=== PATIENT | male | born 1945 | race Caucasian/White ===

== ENCOUNTER 2017-05-30 07:22 | Observation (INO) | payer MEDICARE, OTHER ==
[2017-05-30] MEDS: SODIUM CHLORIDE 0.9% 1L BAG IV* (08:23)
[2017-05-30] MEDS ORDERED: ACETAMINOPHEN 500 MG TAB (08:32)
[2017-05-30 08:39] LABS: ADD MAN DIFF? NO
[2017-05-30] MEDS: CEFEPIME 2GM/50 ML (PMX) 50 ML IVPB (08:39)
[2017-05-30] MEDS: ACETAMINOPHEN 500 MG TAB PO (08:39)
[2017-05-30 08:49] LABS: WHITE BLOOD COUNT 12.5 10^3/ul (4.8-10.8)
[2017-05-30 08:49] LABS: ABNORMAL IP MESSAGE 1; BASOPHILS % 0.2 % (0.0-2.0); EOSINOPHILS # 0.2 10^3/ul (0.0-0.5); EOSINOPHILS % 1.5 % (0.0-7.0); HEMATOCRIT 26.4 % (42.0-52.0); HEMOGLOBIN 8.5 g/dl (14.0-18.0); LYMPHOCYTES # 0.9 10^3/ul (0.8-2.9); LYMPHOCYTES % 6.8 % (15.0-51.0); MEAN CORPUSCULAR HEMOGLOBIN 29.4 pg (29.0-33.0); MEAN CORPUSCULAR HGB CONC 32.2 g/dl (32.0-37.0); MEAN CORPUSCULAR VOLUME 91.3 fl (82.0-101.0); MEAN PLATELET VOLUME 13.5 fl (7.4-10.4); MONOCYTE # 1.2 10^3/ul (0.3-0.9); MONOCYTES % 9.4 % (0.0-11.0); NEUTROPHIL # 10.2 10^3/ul (1.6-7.5); NEUTROPHILS % 81.6 % (39.0-77.0); PLATELET COUNT 100 10^3/UL (140-415); POSITIVE DIFF @See below; RED BLOOD COUNT 2.89 10^6/ul (4.70-6.10); RED CELL DISTRIBUTION WIDTH 14.7 % (11.5-14.5)
[2017-05-30 08:57] LABS: INR 1.19; PROTIME 15.3 Sec (11.9-14.9); PT RATIO 1.2
[2017-05-30 08:58] LABS: PARTIAL THROMBOPLASTIN TIME 33.7 Sec (25.0-35.0)
[2017-05-30] MEDS: VANCOMYCIN 1 GM (PMX) 250 ML IVPB ×2 (09:12→12:05)
[2017-05-30] MEDS: HYDROmorphONE 1 MG/ML SYG IV (09:32)
[2017-05-30] MEDS: ONDANSETRON 4 MG INJ IV (09:32)
[2017-05-30] MEDS: SOD CHLORIDE 0.9% 1,000 ML IV ×3 (09:47→15:13)
[2017-05-30 09:49] LABS: ALANINE AMINOTRANSFERASE 42 IU/L (13-69); ALBUMIN 3.6 g/dl (3.3-4.9); ALBUMIN/GLOBULIN RATIO 0.94; ALKALINE PHOSPHATASE 64 IU/L (42-121); ANION GAP 22 (8-16); ASPARTATE AMINO TRANSFERASE 20 IU/L (15-46); BILIRUBIN,INDIRECT 0.4 mg/dl (0-1.1); BILIRUBIN,TOTAL 0.4 mg/dl (0.2-1.3); BLOOD UREA NITROGEN 49 mg/dl (7-20); CALCIUM 8.3 mg/dl (8.4-10.2); CARBON DIOXIDE 24 mmol/L (21-31); CHLORIDE 102 mmol/L (97-110); CREATININE 10.07 mg/dl (0.61-1.24); GLUCOSE 84 mg/dl (70-220); POTASSIUM 5.1 mmol/L (3.5-5.1); SODIUM 143 mmol/L (135-144); TOTAL PROTEIN 7.4 g/dl (6.1-8.1)
[2017-05-30 10:00] LABS: TROPONIN-I 0.089 ng/ml (0.00-0.12)
[2017-05-30] MEDS ORDERED: ONDANSETRON 4 MG INJ IV ×2 (12:00→14:00)
[2017-05-30] MEDS ORDERED: ACETAMINOPHEN 325 MG TAB PO ×2 (12:00→14:00)
[2017-05-30 12:03] LABS: ADD UMIC YES; UR ASCORBIC ACID NEGATIVE (NEGATIVE); UR BILIRUBIN (Dip) NEGATIVE (NEGATIVE); UR BLOOD (Dip) NEGATIVE (NEGATIVE); UR CLARITY CLEAR (CLEAR); UR COLOR YELLOW (YELLOW); UR GLUCOSE (Dip) 1+ mg/dL (NEGATIVE); UR KETONES (Dip) NEGATIVE (NEGATIVE); UR LEUKOCYTE ESTERASE (Dip) NEGATIVE Leu/ul (NEGATIVE); UR NITRITE (Dip) NEGATIVE (NEGATIVE); UR RBC 0 /HPF (0-5); UR SPECIFIC GRAVITY (Dip) 1.012 (1.003-1.030); UR TOTAL PROTEIN (Dip) 3+ mg/dl (NEGATIVE); UR UROBILINOGEN (Dip) NEGATIVE (NEGATIVE); UR WBC 0 /HPF (0-5)
[2017-05-30] MEDS: CEFEPIME 1GM/50 ML (PMX) 50 ML IVPB (12:04)
[2017-05-30 12:05] LABS: LACTIC ACID 0.8 mmol/L (0.5-2.0)
[2017-05-30] MEDS ORDERED: GLUCOSE GEL 15 GRAM TUBE PO ×2 (14:00)
[2017-05-30] MEDS ORDERED: GLUCAGON 1 MG INJ IM (14:00)
[2017-05-30] MEDS ORDERED: DEXTROSE 50% 50 ML SYRINGE IV ×2 (14:00)
[2017-05-30] MEDS ORDERED: VANCOMYCIN IV PER PHARMACY XX (14:00)
[2017-05-30] MEDS: HYPOGLYCEMIA PROTOCOL when Glucose is <70 mg/dL or symptomatic <90 mg/dL. XX (14:00)
[2017-05-30] MEDS ORDERED: BISACODYL 10 MG SUPP PR (14:00)
[2017-05-30] MEDS ORDERED: HYDROCODONE/APAP (5/325) TAB PO (14:00)
[2017-05-30] MEDS ORDERED: MAGNESIUM HYDROXIDE 30ML CUP PO (14:00)
[2017-05-30] MEDS ORDERED: NACL 0.9% 3 ML SYG IV (14:00)
[2017-05-30] MEDS ORDERED: hydrALAzine 20 MG INJ IV (14:00)
[2017-05-30] MEDS: Discontinue current oral sulfonylureas (glyburide, glipizide, and/or glimepiride) prior to XX (14:00)
[2017-05-30 14:04] LABS: LACTIC ACID 0.8 mmol/L (0.5-2.0)
[2017-05-30 14:20] LABS: URIC ACID 5.8 mg/dl (3.1-7.9)
[2017-05-30] MEDS: morphine 2 MG INJ IV (14:30)
[2017-05-30] MEDS ORDERED: traMADol 50 MG TAB PO (14:30)
[2017-05-30 15:12] LABS: ERYTHROCYTE SEDIMENTATION RATE 35 mm/Hr (0-20)
[2017-05-30] MEDS: PREGABALIN 75 MG CAP PO (15:13)
[2017-05-30] MEDS: HYDROCODONE/APAP (5/325) TAB PO ×2 (15:14→20:12)
[2017-05-30] MEDS: INSULIN ASPART [NOVOLOG] 3 ML PEN SC ×3 (18:03→21:00)
[2017-05-30] MEDS: CALCIUM ACETATE 667 MG CAP PO (19:01)
[2017-05-30] MEDS: CEFTRIAXONE 1 GM/50 ML (PMX) 50 ML IVPB (19:59)
[2017-05-30] MEDS: INSULIN GLARGINE [LANtus] 3 ML PEN SC ×2 (20:00→21:00)
[2017-05-30] MEDS: TERAZOSIN 1 MG CAP PO (21:06)
[2017-05-30] MEDS: METOPROLOL 50 MG TAB PO (21:07)
[2017-05-30] MEDS: FAMOTIDINE 20 MG TAB PO (21:08)
[2017-05-30] MEDS: ATORVASTATIN 80 MG TAB PO (21:13)
[2017-05-30] MEDS: GLUCOSE GEL 15 GRAM TUBE BUCCAL (21:16)
[2017-05-30] MEDS: HEPARIN 5,000 UNIT/0.5 ML VIAL SC (21:21)
[2017-05-31] MEDS: ACCU-CHEK XX (02:00)
[2017-05-31 06:10] LABS: ADD MAN DIFF? NO
[2017-05-31 06:12] LABS: ABNORMAL IP MESSAGE 1; BASOPHILS % 0.2 % (0.0-2.0); EOSINOPHILS # 0.3 10^3/ul (0.0-0.5); EOSINOPHILS % 3.4 % (0.0-7.0); HEMATOCRIT 27.3 % (42.0-52.0); HEMOGLOBIN 8.7 g/dl (14.0-18.0); LYMPHOCYTES % 11.6 % (15.0-51.0); MEAN CORPUSCULAR HGB CONC 31.9 g/dl (32.0-37.0); MEAN PLATELET VOLUME 13.8 fl (7.4-10.4); MONOCYTE # 1.2 10^3/ul (0.3-0.9); MONOCYTES % 14.2 % (0.0-11.0); NEUTROPHIL # 5.7 10^3/ul (1.6-7.5); NEUTROPHILS % 70.2 % (39.0-77.0); PLATELET COUNT 104 10^3/UL (140-415); POSITIVE DIFF @See below; RED CELL DISTRIBUTION WIDTH 14.9 % (11.5-14.5)
[2017-05-31 06:12] LABS: WHITE BLOOD COUNT 8.2 10^3/ul (4.8-10.8)
[2017-05-31 07:06] LABS: ANION GAP 19 (8-16); BLOOD UREA NITROGEN 38 mg/dl (7-20); CALCIUM 8.6 mg/dl (8.4-10.2); CARBON DIOXIDE 28 mmol/L (21-31); CHLORIDE 101 mmol/L (97-110); CREATININE 8.77 mg/dl (0.61-1.24); GLUCOSE 88 mg/dl (70-220); MAGNESIUM 2.1 mg/dl (1.7-2.5); PHOSPHORUS 6.2 mg/dl (2.5-4.9); POTASSIUM 4.6 mmol/L (3.5-5.1); SODIUM 143 mmol/L (135-144)
[2017-05-31] MEDS: INSULIN ASPART [NOVOLOG] 3 ML PEN SC ×7 (08:00→21:00)
[2017-05-31] MEDS: INSULIN GLARGINE [LANtus] 3 ML PEN SC (08:19)
[2017-05-31] MEDS: HEPARIN 5,000 UNIT/0.5 ML VIAL SC ×2 (08:21→21:22)
[2017-05-31] MEDS: FOLIC ACID 1 MG TAB PO (08:25)
[2017-05-31] MEDS: PREGABALIN 75 MG CAP PO (08:25)
[2017-05-31] MEDS: CALCIUM ACETATE 667 MG CAP PO ×3 (08:25→17:29)
[2017-05-31] MEDS: LINAGLIPTIN 5 MG TABLET PO (08:26)
[2017-05-31] MEDS: ASPIRIN (EC) 81 MG TAB PO (08:26)
[2017-05-31] MEDS: CLOPIDOGREL 75 MG TAB PO (08:26)
[2017-05-31] MEDS: METOPROLOL 50 MG TAB PO ×2 (08:27→21:16)
[2017-05-31] MEDS: AMLODIPINE 10 MG TAB PO ×2 (08:27→17:31)
[2017-05-31] MEDS ORDERED: LOSARTAN 50 MG TAB PO (09:00)
[2017-05-31] MEDS: ISOSORBIDE MONONITRATE(SR)30 MG TAB PO (09:00)
[2017-05-31 10:22] LABS: HEMOGLOBIN A1C 5.6 % (0-5.9)
[2017-05-31] MEDS: CEFTRIAXONE 1 GM/50 ML (PMX) 50 ML IVPB (19:57)
[2017-05-31] MEDS: ATORVASTATIN 80 MG TAB PO (21:16)
[2017-05-31] MEDS: TERAZOSIN 1 MG CAP PO (21:16)
[2017-05-31] MEDS: FAMOTIDINE 20 MG TAB PO (21:16)
[2017-06-01] MEDS: ACCU-CHEK XX (02:00)
[2017-06-01] MEDS: DOCUSATE SODIUM 100 MG CAP PO (06:22)
[2017-06-01 06:30] LABS: ADD MAN DIFF? NO
[2017-06-01 06:40] LABS: WHITE BLOOD COUNT 6.7 10^3/ul (4.8-10.8)
[2017-06-01 06:40] LABS: BASOPHILS % 0.5 % (0.0-2.0); EOSINOPHILS # 0.3 10^3/ul (0.0-0.5); EOSINOPHILS % 4.4 % (0.0-7.0); HEMATOCRIT 27.8 % (42.0-52.0); LYMPHOCYTES # 0.8 10^3/ul (0.8-2.9); LYMPHOCYTES % 11.7 % (15.0-51.0); MEAN CORPUSCULAR HEMOGLOBIN 28.9 pg (29.0-33.0); MEAN CORPUSCULAR HGB CONC 32.4 g/dl (32.0-37.0); MEAN CORPUSCULAR VOLUME 89.4 fl (82.0-101.0); MEAN PLATELET VOLUME 12.7 fl (7.4-10.4); MONOCYTES % 15.3 % (0.0-11.0); NEUTROPHIL # 4.5 10^3/ul (1.6-7.5); NEUTROPHILS % 67.5 % (39.0-77.0); PLATELET COUNT 106 10^3/UL (140-415); POSITIVE DIFF @See below; RED BLOOD COUNT 3.11 10^6/ul (4.70-6.10); RED CELL DISTRIBUTION WIDTH 14.1 % (11.5-14.5)
[2017-06-01 07:06] LABS: VANCOMYCIN,RANDOM 8.5 ug/ml
[2017-06-01 07:21] LABS: ANION GAP 21 (8-16); BLOOD UREA NITROGEN 53 mg/dl (7-20); CALCIUM 8.9 mg/dl (8.4-10.2); CARBON DIOXIDE 24 mmol/L (21-31); CHLORIDE 101 mmol/L (97-110); CREATININE 10.88 mg/dl (0.61-1.24); GLUCOSE 94 mg/dl (70-220); POTASSIUM 4.6 mmol/L (3.5-5.1); SODIUM 141 mmol/L (135-144)
[2017-06-01] MEDS ORDERED: INSULIN GLARGINE [LANtus] 3 ML PEN SC (08:00)
[2017-06-01] MEDS: INSULIN ASPART [NOVOLOG] 3 ML PEN SC ×7 (08:00→21:00)
[2017-06-01] MEDS: HEPARIN 5,000 UNIT/0.5 ML VIAL SC (08:30)
[2017-06-01] MEDS: INSULIN GLARGINE [LANtus] 3 ML PEN SC (08:31)
[2017-06-01] MEDS: ASPIRIN (EC) 81 MG TAB PO (08:32)
[2017-06-01] MEDS: FOLIC ACID 1 MG TAB PO (08:32)
[2017-06-01] MEDS: CALCIUM ACETATE 667 MG CAP PO ×3 (08:32→16:48)
[2017-06-01] MEDS: PREGABALIN 75 MG CAP PO (08:32)
[2017-06-01] MEDS: CLOPIDOGREL 75 MG TAB PO (08:32)
[2017-06-01] MEDS: LINAGLIPTIN 5 MG TABLET PO (08:36)
[2017-06-01] MEDS: ISOSORBIDE MONONITRATE(SR)30 MG TAB PO ×2 (09:00→12:11)
[2017-06-01] MEDS: METOPROLOL 50 MG TAB PO ×3 (09:00→21:50)
[2017-06-01] MEDS: AMLODIPINE 10 MG TAB PO ×2 (09:00→12:10)
[2017-06-01 09:28] LABS: MAGNESIUM 2.1 mg/dl (1.7-2.5)
[2017-06-01 09:28] LABS: PHOSPHORUS 6.3 mg/dl (2.5-4.9)
[2017-06-01] MEDS: LEVOFLOXACIN 250 MG TAB PO (11:38)
[2017-06-01] MEDS: FINASTERIDE 5 MG TAB PO (14:40)
[2017-06-01] MEDS: VANCOMYCIN 1 GM in SODIUM CHLORIDE 0.45 % 250 ML IVPB (16:34)
[2017-06-01] MEDS: ATORVASTATIN 80 MG TAB PO (21:49)
[2017-06-01] MEDS: FAMOTIDINE 20 MG TAB PO (21:50)
[2017-06-01] MEDS: TERAZOSIN 1 MG CAP PO (21:50)
[2017-06-02] MEDS: ACCU-CHEK XX (02:00)
[2017-06-02] MEDS: LEVOFLOXACIN 250 MG TAB PO (06:10)
[2017-06-02 06:11] LABS: ADD MAN DIFF? NO
[2017-06-02 06:18] LABS: WHITE BLOOD COUNT 6.3 10^3/ul (4.8-10.8)
[2017-06-02 06:18] LABS: BASOPHILS % 0.5 % (0.0-2.0); EOSINOPHILS # 0.4 10^3/ul (0.0-0.5); EOSINOPHILS % 6.2 % (0.0-7.0); HEMATOCRIT 25.9 % (42.0-52.0); HEMOGLOBIN 8.6 g/dl (14.0-18.0); LYMPHOCYTES # 0.9 10^3/ul (0.8-2.9); LYMPHOCYTES % 14.2 % (15.0-51.0); MEAN CORPUSCULAR HEMOGLOBIN 29.3 pg (29.0-33.0); MEAN CORPUSCULAR HGB CONC 33.2 g/dl (32.0-37.0); MEAN CORPUSCULAR VOLUME 88.1 fl (82.0-101.0); MEAN PLATELET VOLUME 12.9 fl (7.4-10.4); MONOCYTES % 15.6 % (0.0-11.0); PLATELET COUNT 109 10^3/UL (140-415); POSITIVE DIFF @See below; RED BLOOD COUNT 2.94 10^6/ul (4.70-6.10); RED CELL DISTRIBUTION WIDTH 13.7 % (11.5-14.5)
[2017-06-02 06:57] LABS: MAGNESIUM 2.3 mg/dl (1.7-2.5)
[2017-06-02 06:57] LABS: PHOSPHORUS 6.5 mg/dl (2.5-4.9)
[2017-06-02] MEDS: INSULIN ASPART [NOVOLOG] 3 ML PEN SC ×4 (08:00→11:57)
[2017-06-02 08:01] LABS: ALANINE AMINOTRANSFERASE 34 IU/L (13-69); ALBUMIN 3.6 g/dl (3.3-4.9); ALBUMIN/GLOBULIN RATIO 1.16; ALKALINE PHOSPHATASE 61 IU/L (42-121); ANION GAP 21 (8-16); ASPARTATE AMINO TRANSFERASE 30 IU/L (15-46); BILIRUBIN,INDIRECT 0.1 mg/dl (0-1.1); BILIRUBIN,TOTAL 0.1 mg/dl (0.2-1.3); BLOOD UREA NITROGEN 67 mg/dl (7-20); CALCIUM 8.7 mg/dl (8.4-10.2); CARBON DIOXIDE 19 mmol/L (21-31); CHLORIDE 102 mmol/L (97-110); CREATININE 11.71 mg/dl (0.61-1.24); GLUCOSE 80 mg/dl (70-220); POTASSIUM 4.9 mmol/L (3.5-5.1); SODIUM 137 mmol/L (135-144); TOTAL PROTEIN 6.7 g/dl (6.1-8.1)
[2017-06-02] MEDS: CLOPIDOGREL 75 MG TAB PO (08:26)
[2017-06-02] MEDS: FOLIC ACID 1 MG TAB PO (08:26)
[2017-06-02] MEDS: PREGABALIN 75 MG CAP PO (08:26)
[2017-06-02] MEDS: FINASTERIDE 5 MG TAB PO (08:27)
[2017-06-02] MEDS: CALCIUM ACETATE 667 MG CAP PO ×2 (08:27→11:07)
[2017-06-02] MEDS: LINAGLIPTIN 5 MG TABLET PO (08:27)
[2017-06-02] MEDS: INSULIN GLARGINE [LANtus] 3 ML PEN SC (08:28)
[2017-06-02] MEDS: METOPROLOL 50 MG TAB PO (08:30)
[2017-06-02] MEDS: ISOSORBIDE MONONITRATE(SR)30 MG TAB PO (08:30)
[2017-06-02] MEDS: ASPIRIN (EC) 81 MG TAB PO (08:30)
[2017-06-02] MEDS: AMLODIPINE 10 MG TAB PO (08:30)
[2017-06-02] MEDS: EPOETIN 10000 UNITS/1 ML INJ (ESRD) SC (13:33)
[2017-06-02] MEDS: SOD FERRIC GLUC COMPLX 125 MG in SOD CHLORIDE 0.9% 100 ML IVPB (13:38)
== END 2017-06-02 16:18 | disposition home health service (06) ==
LOC: E/R 07:22 → PP2 11:41
DX: N40.1 Benign prostatic hyperplasia with lower urinary tract symptoms (principal); R33.8 Other retention of urine; I12.0 Hypertensive chronic kidney disease with stage 5 chronic kidney disease or end stage renal disease; N18.6 End stage renal disease; Z99.2 Dependence on renal dialysis; I25.10 Atherosclerotic heart disease of native coronary artery without angina pectoris; E11.42 Type 2 diabetes mellitus with diabetic polyneuropathy; I73.9 Peripheral vascular disease, unspecified; Z79.4 Long term (current) use of insulin; E78.5 Hyperlipidemia, unspecified
CPT/HCPCS: 71010; 80048; 80053; 80202; 81001; 82962; 83036; 83605; 83735; 84100; 84484; 84560; 85025; 85610; 85651; 85730; 87040; 87086; 87400; 90935; 93970; G0378

== ENCOUNTER 2017-10-25 13:49 | Observation (INO) | payer MEDICARE, OTHER ==
[2017-10-25] MEDS: NITROGLYCERIN 2% 1 GM OINT PKT TD (16:28)
[2017-10-25] MEDS: ASPIRIN 81 MG TAB PO (16:28)
[2017-10-25 16:45] LABS: ADD MAN DIFF? NO
[2017-10-25 17:01] LABS: BASOPHIL # 0.1 10^3/ul (0.0-0.1); BASOPHILS % 0.9 % (0.0-2.0); EOSINOPHILS # 0.2 10^3/ul (0.0-0.5); HEMOGLOBIN 12.2 g/dl (14.0-18.0); LYMPHOCYTES % 14.9 % (15.0-51.0); MEAN CORPUSCULAR HEMOGLOBIN 28.4 pg (29.0-33.0); MEAN CORPUSCULAR VOLUME 86.2 fl (82.0-101.0); MEAN PLATELET VOLUME 11.8 fl (7.4-10.4); MONOCYTE # 0.7 10^3/ul (0.3-0.9); MONOCYTES % 9.9 % (0.0-11.0); PLATELET COUNT 188 10^3/UL (140-415); RED BLOOD COUNT 4.29 10^6/ul (4.70-6.10); RED CELL DISTRIBUTION WIDTH 15.5 % (11.5-14.5)
[2017-10-25 17:05] LABS: INR 0.96; PROTIME 12.9 Sec (11.9-14.9)
[2017-10-25 17:06] LABS: PARTIAL THROMBOPLASTIN TIME 31.5 Sec (25.0-35.0)
[2017-10-25 17:18] LABS: ANION GAP 20 (8-16); BLOOD UREA NITROGEN 35 mg/dl (7-20); CALCIUM 8.5 mg/dl (8.4-10.2); CARBON DIOXIDE 29 mmol/L (21-31); CHLORIDE 98 mmol/L (97-110); CREATININE 5.93 mg/dl (0.61-1.24); GLUCOSE 111 mg/dl (70-220); MAGNESIUM 2.1 mg/dl (1.7-2.5); PHOSPHORUS 5.3 mg/dl (2.5-4.9); POTASSIUM 4.9 mmol/L (3.5-5.1); SODIUM 142 mmol/L (135-144)
[2017-10-25 17:30] LABS: TROPONIN-I 0.054 ng/ml (0.000-0.120)
[2017-10-25] MEDS ORDERED: morphine 2 MG INJ IV (18:00)
[2017-10-25] MEDS ORDERED: ZOLPIDEM 5 MG TAB PO (18:00)
[2017-10-25] MEDS ORDERED: ONDANSETRON 4 MG INJ IV (18:00)
[2017-10-25] MEDS ORDERED: NITROGLYCERIN (SL) 0.4 MG TAB SL (18:00)
[2017-10-25] MEDS ORDERED: MAGNESIUM HYDROXIDE 30ML CUP PO (18:00)
[2017-10-25] MEDS ORDERED: NACL 0.9% 3 ML SYG IV (18:00)
[2017-10-25] MEDS ORDERED: DOCUSATE SODIUM 100 MG CAP PO (18:00)
[2017-10-25] MEDS ORDERED: ACETAMINOPHEN 325 MG TAB PO (18:00)
[2017-10-25] MEDS: INSULIN ASPART [NOVOLOG] 3 ML PEN SC ×2 (19:06→21:00)
[2017-10-25] MEDS: TERAZOSIN 1 MG CAP PO (21:40)
[2017-10-25] MEDS: MECLIZINE 12.5 MG TAB PO (21:40)
[2017-10-25] MEDS: GABAPENTIN 400 MG CAP PO (21:41)
[2017-10-25] MEDS: ATORVASTATIN 80 MG TAB PO (21:41)
[2017-10-25] MEDS: ROPINIROLE 0.25 MG TAB PO (21:41)
[2017-10-25] MEDS: METOPROLOL 50 MG TAB PO (21:47)
[2017-10-25 22:27] LABS: CREATINE KINASE 170 IU/L (23-200)
[2017-10-25 22:40] LABS: CK INDEX 0.9; TROPONIN-I 0.062 ng/ml (0.000-0.120)
[2017-10-25] MEDS ORDERED: GLUCOSE GEL 15 GRAM TUBE BUCCAL (23:00)
[2017-10-25] MEDS ORDERED: GLUCOSE GEL 15 GRAM TUBE PO ×2 (23:00)
[2017-10-25] MEDS ORDERED: DEXTROSE 50% 50 ML SYRINGE IV ×2 (23:00)
[2017-10-25] MEDS ORDERED: GLUCAGON 1 MG INJ IM (23:00)
[2017-10-26] MEDS: hydrALAzine 20 MG INJ IV ×2 (01:10→15:56)
[2017-10-26] MEDS: ACCU-CHEK XX (02:00)
[2017-10-26 05:38] LABS: WHITE BLOOD COUNT 6.7 10^3/ul (4.8-10.8)
[2017-10-26 05:38] LABS: ADD MAN DIFF? NO; BASOPHIL # 0.1 10^3/ul (0.0-0.1); EOSINOPHILS # 0.2 10^3/ul (0.0-0.5); EOSINOPHILS % 3.1 % (0.0-7.0); HEMATOCRIT 34.8 % (42.0-52.0); HEMOGLOBIN 11.3 g/dl (14.0-18.0); LYMPHOCYTES # 1.1 10^3/ul (0.8-2.9); LYMPHOCYTES % 15.9 % (15.0-51.0); MEAN CORPUSCULAR HEMOGLOBIN 27.9 pg (29.0-33.0); MEAN CORPUSCULAR HGB CONC 32.5 g/dl (32.0-37.0); MEAN CORPUSCULAR VOLUME 85.9 fl (82.0-101.0); MONOCYTE # 0.7 10^3/ul (0.3-0.9); MONOCYTES % 10.1 % (0.0-11.0); NEUTROPHIL # 4.7 10^3/ul (1.6-7.5); NEUTROPHILS % 69.6 % (39.0-77.0); PLATELET COUNT 156 10^3/UL (140-415); RED BLOOD COUNT 4.05 10^6/ul (4.70-6.10); RED CELL DISTRIBUTION WIDTH 15.8 % (11.5-14.5)
[2017-10-26 06:08] LABS: CREATINE KINASE 148 IU/L (23-200)
[2017-10-26 06:17] LABS: ALANINE AMINOTRANSFERASE 27 IU/L (13-69); ALBUMIN 3.7 g/dl (3.3-4.9); ALBUMIN/GLOBULIN RATIO 1.12; ALKALINE PHOSPHATASE 61 IU/L (42-121); ANION GAP 16 (8-16); ASPARTATE AMINO TRANSFERASE 18 IU/L (15-46); BILIRUBIN,INDIRECT 0.2 mg/dl (0-1.1); BILIRUBIN,TOTAL 0.2 mg/dl (0.2-1.3); BLOOD UREA NITROGEN 47 mg/dl (7-20); CALCIUM 8.5 mg/dl (8.4-10.2); CARBON DIOXIDE 31 mmol/L (21-31); CHLORIDE 100 mmol/L (97-110); CREATININE 7.22 mg/dl (0.61-1.24); GLUCOSE 68 mg/dl (70-220); POTASSIUM 4.7 mmol/L (3.5-5.1); SODIUM 142 mmol/L (135-144)
[2017-10-26 06:18] LABS: CK INDEX 0.8; TROPONIN-I 0.064 ng/ml (0.000-0.120)
[2017-10-26 06:19] LABS: CK-MB 1.23 ng/ml (0.0-2.4)
[2017-10-26 06:22] LABS: CHOL/HDL RATIO 4.6 RATIO; CHOLESTEROL 162 mg/dl (100-200); HDL CHOLESTEROL 35 mg/dl (31-75); LDL CHOLESTEROL,CALCULATED 80 mg/dl; MAGNESIUM 2.2 mg/dl (1.7-2.5); TRIGLYCERIDES 237 mg/dl (0-149)
[2017-10-26 06:22] LABS: PHOSPHORUS 6.2 mg/dl (2.5-4.9)
[2017-10-26 07:09] LABS: HEMOGLOBIN A1C 5.8 % (0-5.9)
[2017-10-26] MEDS: INSULIN ASPART [NOVOLOG] 3 ML PEN SC ×2 (08:00→12:00)
[2017-10-26] MEDS: INSULIN GLARGINE [LANtus] 3 ML PEN SC (09:00)
[2017-10-26] MEDS: ISOSORBIDE MONONITRATE(SR)30 MG TAB PO (10:01)
[2017-10-26] MEDS: MECLIZINE 12.5 MG TAB PO (10:01)
[2017-10-26] MEDS: ASPIRIN (EC) 81 MG TAB PO (10:02)
[2017-10-26] MEDS: GABAPENTIN 400 MG CAP PO ×2 (10:02→13:09)
[2017-10-26] MEDS: METOPROLOL 50 MG TAB PO (10:02)
[2017-10-26] MEDS: CLOPIDOGREL 75 MG TAB PO (10:02)
[2017-10-26] MEDS: AMLODIPINE 10 MG TAB PO (10:03)
[2017-10-26] MEDS: HYDROCODONE/APAP (5/325) TAB PO (10:24)
[2017-10-26] MEDS: REGADENOSON 0.4 MG/5 ML SYG (14:09)
[2017-10-26] MEDS ORDERED: morphine LIQ (10 MG/5 ML) CUP PO (15:00)
== END 2017-10-26 18:00 | disposition home or self-care (01) ==
LOC: MS4 17:41 → E/R 13:49
DX: R07.9 Chest pain, unspecified (principal); I12.0 Hypertensive chronic kidney disease with stage 5 chronic kidney disease or end stage renal disease; E11.22 Type 2 diabetes mellitus with diabetic chronic kidney disease; N18.6 End stage renal disease; Z99.2 Dependence on renal dialysis; Z79.4 Long term (current) use of insulin; E78.5 Hyperlipidemia, unspecified; I25.10 Atherosclerotic heart disease of native coronary artery without angina pectoris; Z98.61 Coronary angioplasty status; D64.9 Anemia, unspecified
CPT/HCPCS: 36415; 71045; 78452; 80048; 80053; 80061; 82550; 82553; 82962; 83036; 83735; 84100; 84443; 84484; 85025; 85610; 85730; 87081; 93005; 93017; 93306; 99285-25; G0378

== ENCOUNTER 2017-11-11 16:46 | Observation (INO) | payer MEDICARE, OTHER ==
[2017-11-11 19:35] LABS: ADD MAN DIFF? NO
[2017-11-11 19:36] LABS: BASOPHIL # 0.1 10^3/ul (0.0-0.1); EOSINOPHILS # 0.3 10^3/ul (0.0-0.5); EOSINOPHILS % 3.9 % (0.0-7.0); HEMATOCRIT 36.6 % (42.0-52.0); HEMOGLOBIN 12.3 g/dl (14.0-18.0); LYMPHOCYTES # 1.8 10^3/ul (0.8-2.9); LYMPHOCYTES % 21.5 % (15.0-51.0); MEAN CORPUSCULAR HGB CONC 33.6 g/dl (32.0-37.0); MEAN CORPUSCULAR VOLUME 86.3 fl (82.0-101.0); MEAN PLATELET VOLUME 11.8 fl (7.4-10.4); MONOCYTE # 0.9 10^3/ul (0.3-0.9); MONOCYTES % 11.2 % (0.0-11.0); NEUTROPHIL # 5.1 10^3/ul (1.6-7.5); NEUTROPHILS % 61.8 % (39.0-77.0); PLATELET COUNT 163 10^3/UL (140-415); RED BLOOD COUNT 4.24 10^6/ul (4.70-6.10); RED CELL DISTRIBUTION WIDTH 15.8 % (11.5-14.5)
[2017-11-11 19:36] LABS: WHITE BLOOD COUNT 8.2 10^3/ul (4.8-10.8)
[2017-11-11 19:57] LABS: ANION GAP 24 (8-16); BLOOD UREA NITROGEN 48 mg/dl (7-20); CARBON DIOXIDE 26 mmol/L (21-31); CHLORIDE 99 mmol/L (97-110); CREATININE 8.54 mg/dl (0.61-1.24); GLUCOSE 100 mg/dl (70-220); POTASSIUM 4.9 mmol/L (3.5-5.1); SODIUM 144 mmol/L (135-144)
[2017-11-11 19:58] LABS: PROTIME 13.3 Sec (11.9-14.9)
[2017-11-11 19:59] LABS: PARTIAL THROMBOPLASTIN TIME 29.7 Sec (25.0-35.0)
[2017-11-11] MEDS: APIXABAN 5 MG TABLET PO (20:14)
[2017-11-11] MEDS ORDERED: ACETAMINOPHEN 325 MG TAB PO (20:30)
[2017-11-11] MEDS ORDERED: ONDANSETRON 4 MG INJ IV (20:30)
[2017-11-11] MEDS ORDERED: morphine 2 MG INJ IV (21:30)
[2017-11-11] MEDS ORDERED: DEXTROSE 50% 50 ML SYRINGE IV ×2 (22:00)
[2017-11-11] MEDS ORDERED: GLUCOSE GEL 15 GRAM TUBE PO ×2 (22:00)
[2017-11-11] MEDS ORDERED: GLUCOSE GEL 15 GRAM TUBE BUCCAL (22:00)
[2017-11-11] MEDS ORDERED: GLUCAGON 1 MG INJ IM (22:00)
[2017-11-11] MEDS: INSULIN ASPART [NOVOLOG] 3 ML PEN SC (22:03)
[2017-11-11] MEDS: hydrALAzine 20 MG INJ IV (22:04)
[2017-11-12] MEDS: ACETAMINOPHEN 325 MG TAB PO ×2 (01:16→10:48)
[2017-11-12] MEDS: ACCU-CHEK XX (01:28)
[2017-11-12] MEDS: INSULIN ASPART [NOVOLOG] 3 ML PEN SC ×4 (08:14→17:24)
[2017-11-12] MEDS: hydrALAzine 20 MG INJ IV (08:15)
[2017-11-12 16:41] LABS: D-DIMER 969.83 ng/ml (<460)
[2017-11-12 16:59] LABS: HEPATITIS B SURFACE ANTIGEN NEGATIVE (NEGATIVE)
[2017-11-12] MEDS ORDERED: HYDROCODONE/APAP (5/325) TAB PO (17:30)
== END 2017-11-12 20:20 | disposition home or self-care (01) ==
LOC: E/R 16:46 → MS2 20:11
DX: I82.412 Acute embolism and thrombosis of left femoral vein (principal); I12.0 Hypertensive chronic kidney disease with stage 5 chronic kidney disease or end stage renal disease; E10.22 Type 1 diabetes mellitus with diabetic chronic kidney disease; N18.6 End stage renal disease; Z99.2 Dependence on renal dialysis; I25.10 Atherosclerotic heart disease of native coronary artery without angina pectoris; Z95.5 Presence of coronary angioplasty implant and graft; E10.51 Type 1 diabetes mellitus with diabetic peripheral angiopathy without gangrene; E10.40 Type 1 diabetes mellitus with diabetic neuropathy, unspecified; D64.9 Anemia, unspecified; M89.9 Disorder of bone, unspecified; E78.5 Hyperlipidemia, unspecified; Z79.4 Long term (current) use of insulin; Z79.82 Long term (current) use of aspirin; Z79.02 Long term (current) use of antithrombotics/antiplatelets
CPT/HCPCS: 36415; 80048; 82962; 85025; 85378; 85610; 85730; 87081; 87340; 90935; 93971; 99217; 99285-25

== ENCOUNTER 2018-01-02 18:41 | Emergency (ER) | payer MEDICARE, OTHER ==
[2018-01-02 20:52] LABS: ADD MAN DIFF? NO
[2018-01-02 20:55] LABS: ABNORMAL IP MESSAGE 1; BASOPHIL # 0.1 10^3/ul (0.0-0.1); BASOPHILS % 0.9 % (0.0-2.0); EOSINOPHILS # 0.2 10^3/ul (0.0-0.5); HEMOGLOBIN 10.9 g/dl (14.0-18.0); LYMPHOCYTES % 9.1 % (15.0-51.0); MEAN CORPUSCULAR HEMOGLOBIN 27.9 pg (29.0-33.0); MEAN CORPUSCULAR HGB CONC 32.1 g/dl (32.0-37.0); MEAN PLATELET VOLUME 12.5 fl (7.4-10.4); MONOCYTES % 9.7 % (0.0-11.0); NEUTROPHIL # 8.1 10^3/ul (1.6-7.5); NEUTROPHILS % 77.8 % (39.0-77.0); PLATELET COUNT 153 10^3/UL (140-415); POSITIVE DIFF @See below; RED BLOOD COUNT 3.91 10^6/ul (4.70-6.10)
[2018-01-02 20:55] LABS: WHITE BLOOD COUNT 10.4 10^3/ul (4.8-10.8)
[2018-01-02 21:14] LABS: INR 1.08; PROTIME 14.1 Sec (11.9-14.9); PT RATIO 1.1
[2018-01-02 21:15] LABS: ALANINE AMINOTRANSFERASE 29 IU/L (13-69); ALBUMIN 4.3 g/dl (3.3-4.9); ALBUMIN/GLOBULIN RATIO 1.16; ALKALINE PHOSPHATASE 67 IU/L (42-121); ANION GAP 22 (8-16); ASPARTATE AMINO TRANSFERASE 30 IU/L (15-46); BILIRUBIN,INDIRECT 0.4 mg/dl (0-1.1); BILIRUBIN,TOTAL 0.4 mg/dl (0.2-1.3); BLOOD UREA NITROGEN 64 mg/dl (7-20); CALCIUM 8.1 mg/dl (8.4-10.2); CARBON DIOXIDE 22 mmol/L (21-31); CHLORIDE 97 mmol/L (97-110); CREATININE 11.62 mg/dl (0.61-1.24); GLUCOSE 191 mg/dl (70-220); SODIUM 136 mmol/L (135-144)
[2018-01-02 21:26] LABS: TROPONIN-I 0.058 ng/ml (0.000-0.120)
== END 2018-01-03 00:15 | disposition home or self-care (01) ==
LOC: E/R 18:41
DX: E11.22 Type 2 diabetes mellitus with diabetic chronic kidney disease (principal); N18.6 End stage renal disease; I12.0 Hypertensive chronic kidney disease with stage 5 chronic kidney disease or end stage renal disease; I25.10 Atherosclerotic heart disease of native coronary artery without angina pectoris; R41.82 Altered mental status, unspecified; Z79.01 Long term (current) use of anticoagulants; Z79.4 Long term (current) use of insulin; Z98.61 Coronary angioplasty status; Z79.82 Long term (current) use of aspirin
CPT/HCPCS: 36415; 70450; 71045; 80053; 84484; 85025; 85610; 93005; 99285-25

== ENCOUNTER 2018-01-03 13:43 | Inpatient (IN) | payer MEDICARE, OTHER ==
[2018-01-03 21:02] LABS: ADD MAN DIFF? NO
[2018-01-03 21:08] LABS: BASOPHIL # 0.1 10^3/ul (0.0-0.1); BASOPHILS % 0.9 % (0.0-2.0); EOSINOPHILS # 0.2 10^3/ul (0.0-0.5); EOSINOPHILS % 1.8 % (0.0-7.0); HEMATOCRIT 35.8 % (42.0-52.0); HEMOGLOBIN 11.7 g/dl (14.0-18.0); LYMPHOCYTES # 1.4 10^3/ul (0.8-2.9); LYMPHOCYTES % 16.2 % (15.0-51.0); MEAN CORPUSCULAR HEMOGLOBIN 28.5 pg (29.0-33.0); MEAN CORPUSCULAR HGB CONC 32.7 g/dl (32.0-37.0); MEAN CORPUSCULAR VOLUME 87.1 fl (82.0-101.0); MEAN PLATELET VOLUME 12.5 fl (7.4-10.4); MONOCYTE # 0.8 10^3/ul (0.3-0.9); MONOCYTES % 9.6 % (0.0-11.0); NEUTROPHILS % 71.1 % (39.0-77.0); PLATELET COUNT 193 10^3/UL (140-415); RED BLOOD COUNT 4.11 10^6/ul (4.70-6.10); RED CELL DISTRIBUTION WIDTH 17.3 % (11.5-14.5)
[2018-01-03 21:08] LABS: WHITE BLOOD COUNT 8.4 10^3/ul (4.8-10.8)
[2018-01-03 21:28] LABS: PROTIME 14.4 Sec (11.9-14.9); PT RATIO 1.1
[2018-01-03 21:33] LABS: ALANINE AMINOTRANSFERASE 30 IU/L (13-69); ALBUMIN 4.8 g/dl (3.3-4.9); ALKALINE PHOSPHATASE 82 IU/L (42-121); ANION GAP 22 (8-16); ASPARTATE AMINO TRANSFERASE 32 IU/L (15-46); BILIRUBIN,INDIRECT 0.3 mg/dl (0-1.1); BILIRUBIN,TOTAL 0.3 mg/dl (0.2-1.3); BLOOD UREA NITROGEN 42 mg/dl (7-20); CALCIUM 9.2 mg/dl (8.4-10.2); CARBON DIOXIDE 25 mmol/L (21-31); CHLORIDE 96 mmol/L (97-110); CREATININE 8.43 mg/dl (0.61-1.24); GLUCOSE 187 mg/dl (70-220); POTASSIUM 4.8 mmol/L (3.5-5.1); SODIUM 138 mmol/L (135-144); TOTAL PROTEIN 8.8 g/dl (6.1-8.1)
[2018-01-03 21:39] LABS: ACETAMINOPHEN < 10.0 ug/ml (10.0-30.0); ETHANOL < 10.0 mg/dl; SALICYLATE < 1.0 mg/dl (5.0-30.0)
[2018-01-03 21:43] LABS: TROPONIN-I 0.055 ng/ml (0.000-0.120)
[2018-01-03 21:45] LABS: LACTIC ACID 2.8 mmol/L (0.5-2.0)
[2018-01-03] MEDS: SOD CHLORIDE 0.9% 500 ML IV (22:48)
[2018-01-04 00:43] LABS: LACTIC ACID 2.7 mmol/L (0.5-2.0)
[2018-01-04] MEDS: CEFEPIME 2GM/50 ML (PMX) 50 ML IVPB (01:54)
[2018-01-04] MEDS: SODIUM CHLORIDE 0.9% 1L BAG IV* (01:54)
[2018-01-04] MEDS: VANCOMYCIN 1 GM (PMX) 250 ML IVPB (03:17)
[2018-01-04] MEDS ORDERED: ACETAMINOPHEN 325 MG TAB PO ×2 (06:30→13:30)
[2018-01-04] MEDS ORDERED: ONDANSETRON 4 MG INJ IV (06:30)
[2018-01-04 06:31] LABS: LACTIC ACID 2.2 mmol/L (0.5-2.0)
[2018-01-04 07:05] LABS: AMPHETAMINE/METHAMPHETAMINE NEGATIVE (NEGATIVE); BARBITURATES NEGATIVE (NEGATIVE); BENZODIAZEPINES NEGATIVE (NEGATIVE); CANNABINOIDS NEGATIVE (NEGATIVE); COCAINE NEGATIVE (NEGATIVE); OPIATES NEGATIVE (NEGATIVE)
[2018-01-04] MEDS ORDERED: BISACODYL 10 MG SUPP PR (13:30)
[2018-01-04] MEDS ORDERED: DOCUSATE SODIUM 100 MG CAP PO (13:30)
[2018-01-04] MEDS ORDERED: morphine 2 MG INJ IV (13:30)
[2018-01-04] MEDS ORDERED: VANCOMYCIN IV PER PHARMACY XX (13:30)
[2018-01-04] MEDS ORDERED: ACETAMINOPHEN 650 MG SUPP PR (13:30)
[2018-01-04] MEDS ORDERED: NACL 0.9% 3 ML SYG IV (13:30)
[2018-01-04] MEDS: CEFEPIME 1GM/50 ML (PMX) 50 ML IVPB ×2 (14:19→14:32)
[2018-01-04 14:39] LABS: Allen Test ACCEPTAB; Arterial Base Excess -3.9 mmol/L (-3.0-3); Arterial Blood Gas Oxygen Sat 94.1 mmHG (95.0-98.0); Arterial COHb 1.2 % (0.0-3.0); Arterial Fraction of Oxyhgb 92.7 % (93.0-99.0); Arterial HCO3 21.3 mmol/L (22.0-26.0); Arterial MetHb 0.3 % (0.0-1.5); Arterial pCO2 39.4 mmhg (35-45); MODE ROOM AIR; Site Right Radial
[2018-01-04] MEDS: VANCOMYCIN 750 MG in SOD CHLORIDE 0.9% 150 ML IVPB (14:56)
[2018-01-04 15:04] LABS: LACTIC ACID 2.1 mmol/L (0.5-2.0)
[2018-01-04] MEDS: CALCIUM ACETATE 667 MG CAP PO (18:05)
[2018-01-04] MEDS: hydrALAzine 20 MG INJ IV (18:10)
[2018-01-04] MEDS: INSULIN ASPART [NOVOLOG] 3 ML PEN SC ×3 (18:27→20:59)
[2018-01-04] MEDS: TERAZOSIN 1 MG CAP PO (20:55)
[2018-01-04] MEDS: METOPROLOL 50 MG TAB PO (20:56)
[2018-01-04] MEDS: ATORVASTATIN 80 MG TAB PO (20:56)
[2018-01-04] MEDS: ROPINIROLE 0.25 MG TAB PO (20:56)
[2018-01-04] MEDS: BACLOFEN 10 MG TAB PO (21:00)
[2018-01-04] MEDS: GABAPENTIN 400 MG CAP PO (21:00)
[2018-01-04] MEDS: ACCU-CHEK XX (21:01)
[2018-01-05 06:32] LABS: ADD MAN DIFF? NO
[2018-01-05 06:38] LABS: WHITE BLOOD COUNT 7.8 10^3/ul (4.8-10.8)
[2018-01-05 06:38] LABS: BASOPHIL # 0.1 10^3/ul (0.0-0.1); BASOPHILS % 0.9 % (0.0-2.0); EOSINOPHILS # 0.2 10^3/ul (0.0-0.5); EOSINOPHILS % 2.8 % (0.0-7.0); HEMATOCRIT 34.9 % (42.0-52.0); HEMOGLOBIN 11.1 g/dl (14.0-18.0); LYMPHOCYTES % 12.2 % (15.0-51.0); MEAN CORPUSCULAR HEMOGLOBIN 27.7 pg (29.0-33.0); MEAN CORPUSCULAR HGB CONC 31.8 g/dl (32.0-37.0); MEAN PLATELET VOLUME 12.3 fl (7.4-10.4); MONOCYTE # 0.9 10^3/ul (0.3-0.9); MONOCYTES % 11.7 % (0.0-11.0); NEUTROPHIL # 5.6 10^3/ul (1.6-7.5); NEUTROPHILS % 71.6 % (39.0-77.0); PLATELET COUNT 168 10^3/UL (140-415); RED BLOOD COUNT 4.01 10^6/ul (4.70-6.10); RED CELL DISTRIBUTION WIDTH 17.4 % (11.5-14.5)
[2018-01-05 07:11] LABS: ALANINE AMINOTRANSFERASE 30 IU/L (13-69); ALBUMIN 3.9 g/dl (3.3-4.9); ALKALINE PHOSPHATASE 62 IU/L (42-121); ANION GAP 20 (8-16); ASPARTATE AMINO TRANSFERASE 27 IU/L (15-46); BILIRUBIN,INDIRECT 0.4 mg/dl (0-1.1); BILIRUBIN,TOTAL 0.4 mg/dl (0.2-1.3); BLOOD UREA NITROGEN 61 mg/dl (7-20); CALCIUM 8.4 mg/dl (8.4-10.2); CARBON DIOXIDE 19 mmol/L (21-31); CHLORIDE 105 mmol/L (97-110); CHOL/HDL RATIO 6.2 RATIO; CHOLESTEROL 212 mg/dl (100-200); GLUCOSE 145 mg/dl (70-220); HDL CHOLESTEROL 34 mg/dl (31-75); LDL CHOLESTEROL,CALCULATED 96 mg/dl; MAGNESIUM 2.1 mg/dl (1.7-2.5); PHOSPHORUS 7.1 mg/dl (2.5-4.9); POTASSIUM 5.6 mmol/L (3.5-5.1); SODIUM 138 mmol/L (135-144); TOTAL PROTEIN 6.9 g/dl (6.1-8.1); TRIGLYCERIDES 408 mg/dl (0-149)
[2018-01-05 07:21] LABS: FREE THYROXINE INDEX (Calc) 2.27 ug/ml (0.65-3.89); T3 UPTAKE 37.9 % (23.5-40.5)
[2018-01-05] MEDS: INSULIN GLARGINE [LANTus] (100 UNITS/ML) SYG SC (08:00)
[2018-01-05 08:11] LABS: HEMOGLOBIN A1C 7.3 % (0-5.9)
[2018-01-05] MEDS: DOCUSATE SODIUM 100 MG CAP PO (08:33)
[2018-01-05] MEDS: GABAPENTIN 400 MG CAP PO ×3 (08:33→22:58)
[2018-01-05] MEDS: AMLODIPINE 10 MG TAB PO (08:34)
[2018-01-05] MEDS: CLOPIDOGREL 75 MG TAB PO (08:34)
[2018-01-05] MEDS: CALCIUM ACETATE 667 MG CAP PO ×3 (08:34→17:54)
[2018-01-05] MEDS: ISOSORBIDE MONONITRATE(SR)30 MG TAB PO (08:34)
[2018-01-05] MEDS: ASPIRIN (EC) 81 MG TAB PO (08:34)
[2018-01-05] MEDS: METOPROLOL 50 MG TAB PO ×2 (08:35→23:00)
[2018-01-05] MEDS: LOSARTAN 50 MG TAB PO (08:35)
[2018-01-05] MEDS: INSULIN ASPART [NOVOLOG] 3 ML PEN SC ×7 (08:45→23:01)
[2018-01-05] MEDS: HYDROCHLOROTHIAZIDE 12.5 MG CAP PO (08:46)
[2018-01-05] MEDS ORDERED: NON-FORMULARY/PATIENT OWN MED (Losartan-Hydrochlorothiazide (Losartan-HCTZ) 1 TAB) PO (09:00)
[2018-01-05 11:48] LABS: LACTIC ACID 2.1 mmol/L (0.5-2.0)
[2018-01-05 12:04] LABS: HEPATITIS B SURFACE ANTIGEN NEGATIVE (NEGATIVE)
[2018-01-05 12:20] LABS: HEPATITIS B SURFACE ANTIBODY POSITIVE (NEGATIVE)
[2018-01-05] MEDS: SEVELAMER CARBONATE 800 MG TABLET PO ×2 (12:43→17:55)
[2018-01-05] MEDS: CEFEPIME 1GM/50 ML (PMX) 50 ML IVPB (14:49)
[2018-01-05] MEDS ORDERED: morphine LIQ (10 MG/5 ML) CUP PO (15:00)
[2018-01-05] MEDS: HYDROCODONE/APAP (5/325) TAB PO (18:00)
[2018-01-05] MEDS: BACLOFEN 10 MG TAB PO (22:58)
[2018-01-05] MEDS: TERAZOSIN 1 MG CAP PO (22:59)
[2018-01-05] MEDS: ROPINIROLE 0.25 MG TAB PO (22:59)
[2018-01-05] MEDS: ATORVASTATIN 80 MG TAB PO (23:01)
[2018-01-06] MEDS: ACCU-CHEK XX (02:00)
[2018-01-06 06:02] LABS: ADD MAN DIFF? NO
[2018-01-06 06:09] LABS: BASOPHIL # 0.1 10^3/ul (0.0-0.1); BASOPHILS % 0.7 % (0.0-2.0); EOSINOPHILS # 0.2 10^3/ul (0.0-0.5); EOSINOPHILS % 3.3 % (0.0-7.0); HEMATOCRIT 32.7 % (42.0-52.0); HEMOGLOBIN 10.6 g/dl (14.0-18.0); LYMPHOCYTES % 14.9 % (15.0-51.0); MEAN CORPUSCULAR HGB CONC 32.4 g/dl (32.0-37.0); MEAN CORPUSCULAR VOLUME 86.5 fl (82.0-101.0); MEAN PLATELET VOLUME 12.8 fl (7.4-10.4); MONOCYTE # 0.9 10^3/ul (0.3-0.9); MONOCYTES % 12.6 % (0.0-11.0); NEUTROPHIL # 4.7 10^3/ul (1.6-7.5); NEUTROPHILS % 67.9 % (39.0-77.0); PLATELET COUNT 164 10^3/UL (140-415); RED BLOOD COUNT 3.78 10^6/ul (4.70-6.10); RED CELL DISTRIBUTION WIDTH 17.8 % (11.5-14.5)
[2018-01-06 06:09] LABS: WHITE BLOOD COUNT 6.9 10^3/ul (4.8-10.8)
[2018-01-06 06:52] LABS: ANION GAP 18 (8-16); BLOOD UREA NITROGEN 41 mg/dl (7-20); CALCIUM 8.5 mg/dl (8.4-10.2); CARBON DIOXIDE 23 mmol/L (21-31); CHLORIDE 101 mmol/L (97-110); CREATININE 7.95 mg/dl (0.61-1.24); GLUCOSE 181 mg/dl (70-220); PHOSPHORUS 5.8 mg/dl (2.5-4.9); POTASSIUM 4.3 mmol/L (3.5-5.1); SODIUM 138 mmol/L (135-144)
[2018-01-06] MEDS: INSULIN ASPART [NOVOLOG] 3 ML PEN SC ×7 (08:00→20:20)
[2018-01-06] MEDS: SEVELAMER CARBONATE 800 MG TABLET PO ×3 (08:47→17:45)
[2018-01-06] MEDS: CALCIUM ACETATE 667 MG CAP PO ×3 (08:47→17:45)
[2018-01-06] MEDS: GABAPENTIN 400 MG CAP PO ×3 (08:47→20:17)
[2018-01-06] MEDS: ASPIRIN (EC) 81 MG TAB PO (08:47)
[2018-01-06] MEDS: DOCUSATE SODIUM 100 MG CAP PO (08:48)
[2018-01-06] MEDS: HYDROCHLOROTHIAZIDE 12.5 MG CAP PO (08:48)
[2018-01-06] MEDS: AMLODIPINE 10 MG TAB PO (08:48)
[2018-01-06] MEDS: ISOSORBIDE MONONITRATE(SR)30 MG TAB PO (08:49)
[2018-01-06] MEDS: CLOPIDOGREL 75 MG TAB PO (08:49)
[2018-01-06] MEDS: LOSARTAN 50 MG TAB PO (08:49)
[2018-01-06] MEDS: METOPROLOL 50 MG TAB PO ×2 (08:50→20:19)
[2018-01-06] MEDS: INSULIN GLARGINE [LANTus] (100 UNITS/ML) SYG SC (08:53)
[2018-01-06] MEDS: BACLOFEN 10 MG TAB PO (20:17)
[2018-01-06] MEDS: TERAZOSIN 1 MG CAP PO (20:18)
[2018-01-06] MEDS: ROPINIROLE 0.25 MG TAB PO (20:18)
[2018-01-06] MEDS: ATORVASTATIN 80 MG TAB PO (23:01)
[2018-01-07] MEDS: ACCU-CHEK XX (02:00)
[2018-01-07] MEDS: INSULIN ASPART [NOVOLOG] 3 ML PEN SC ×2 (09:17→10:24)
[2018-01-07] MEDS: CALCIUM ACETATE 667 MG CAP PO ×3 (10:24→17:16)
[2018-01-07] MEDS: SEVELAMER CARBONATE 800 MG TABLET PO ×3 (10:24→17:16)
[2018-01-07] MEDS: LOSARTAN 50 MG TAB PO (10:27)
[2018-01-07] MEDS: DOCUSATE SODIUM 100 MG CAP PO (10:27)
[2018-01-07] MEDS: ASPIRIN (EC) 81 MG TAB PO (10:28)
[2018-01-07] MEDS: HYDROCHLOROTHIAZIDE 12.5 MG CAP PO (10:29)
[2018-01-07] MEDS: ISOSORBIDE MONONITRATE(SR)30 MG TAB PO (10:29)
[2018-01-07] MEDS: CLOPIDOGREL 75 MG TAB PO (10:30)
[2018-01-07] MEDS: METOPROLOL 50 MG TAB PO ×2 (10:30→21:00)
[2018-01-07] MEDS: GABAPENTIN 400 MG CAP PO ×3 (10:30→21:00)
[2018-01-07] MEDS: AMLODIPINE 10 MG TAB PO (10:30)
[2018-01-07 10:37] LABS: ADD MAN DIFF? NO
[2018-01-07 10:39] LABS: AADO2 Arterial 18.3 mmHg (7.0-24.0); Arterial Base Excess -3.1 mmol/L (-3.0-3); Arterial COHb 0.9 % (0.0-3.0); Arterial Fraction of Oxyhgb 93.9 % (93.0-99.0); Arterial HCO3 21.5 mmol/L (22.0-26.0); Arterial MetHb 0.3 % (0.0-1.5); Arterial Total Hemglobin 11.2 g/dl (12.0-18.0); Arterial pCO2 36.9 mmhg (35-45); MODE ROOM AIR; Site Right Radial
[2018-01-07 10:42] LABS: BASOPHIL # 0.1 10^3/ul (0.0-0.1); BASOPHILS % 0.6 % (0.0-2.0); EOSINOPHILS # 0.3 10^3/ul (0.0-0.5); EOSINOPHILS % 3.4 % (0.0-7.0); HEMATOCRIT 36.2 % (42.0-52.0); HEMOGLOBIN 11.7 g/dl (14.0-18.0); LYMPHOCYTES % 12.5 % (15.0-51.0); MEAN CORPUSCULAR HEMOGLOBIN 28.5 pg (29.0-33.0); MEAN CORPUSCULAR HGB CONC 32.3 g/dl (32.0-37.0); MEAN CORPUSCULAR VOLUME 88.1 fl (82.0-101.0); MEAN PLATELET VOLUME 11.9 fl (7.4-10.4); MONOCYTE # 0.8 10^3/ul (0.3-0.9); NEUTROPHILS % 72.9 % (39.0-77.0); PLATELET COUNT 159 10^3/UL (140-415); RED BLOOD COUNT 4.11 10^6/ul (4.70-6.10); RED CELL DISTRIBUTION WIDTH 17.5 % (11.5-14.5)
[2018-01-07 10:42] LABS: WHITE BLOOD COUNT 8.3 10^3/ul (4.8-10.8)
[2018-01-07 11:09] LABS: AMMONIA < 9 umol/l (9-30)
[2018-01-07 11:11] LABS: ALANINE AMINOTRANSFERASE 30 IU/L (13-69); ALBUMIN 4.3 g/dl (3.3-4.9); ALKALINE PHOSPHATASE 64 IU/L (42-121); ANION GAP 22 (8-16); ASPARTATE AMINO TRANSFERASE 28 IU/L (15-46); BILIRUBIN,INDIRECT 0.5 mg/dl (0-1.1); BILIRUBIN,TOTAL 0.5 mg/dl (0.2-1.3); BLOOD UREA NITROGEN 56 mg/dl (7-20); CARBON DIOXIDE 22 mmol/L (21-31); CHLORIDE 99 mmol/L (97-110); CREATININE 10.29 mg/dl (0.61-1.24); GLUCOSE 141 mg/dl (70-220); POTASSIUM 5.1 mmol/L (3.5-5.1); SODIUM 138 mmol/L (135-144); TOTAL PROTEIN 7.6 g/dl (6.1-8.1)
[2018-01-07] MEDS: INSULIN GLARGINE [LANTus] (100 UNITS/ML) SYG SC (11:17)
[2018-01-07] MEDS ORDERED: INSULIN ASPART [NOVOLOG] 3 ML PEN SC (12:00)
[2018-01-07] MEDS: DEXTROSE 5%-0.45% NACL 1,000 ML IV (12:23)
[2018-01-07 12:38] LABS: LACTIC ACID 1.6 mmol/L (0.5-2.0)
[2018-01-07 12:52] LABS: TROPONIN-I 0.038 ng/ml (0.000-0.120)
[2018-01-07] MEDS ORDERED: VANCOMYCIN IV PER PHARMACY XX (14:30)
[2018-01-07] MEDS: Insulin NOVOLOG SS MILD Algorithm (NPO/TPN/ENTERAL FEEDS) SC ×2 (15:54→17:34)
[2018-01-07] MEDS: CEFEPIME 1GM/50 ML (PMX) 50 ML IVPB (17:15)
[2018-01-07] MEDS: VANCOMYCIN 1 GM 250 ML IVPB (17:23)
[2018-01-07] MEDS: ATORVASTATIN 80 MG TAB PO (21:00)
[2018-01-07] MEDS: TERAZOSIN 1 MG CAP PO (21:00)
[2018-01-07] MEDS: ROPINIROLE 0.25 MG TAB PO (21:00)
[2018-01-07] MEDS: BACLOFEN 10 MG TAB PO (21:00)
[2018-01-08] MEDS: hydrALAzine 20 MG INJ IV ×4 (00:26→20:16)
[2018-01-08] MEDS: ACCU-CHEK XX (02:00)
[2018-01-08] MEDS: DEXTROSE 5%-0.45% NACL 1,000 ML IV ×2 (02:18→16:38)
[2018-01-08] MEDS: KETOROLAC 30 MG INJ IV (06:28)
[2018-01-08] MEDS: Insulin NOVOLOG SS MILD Algorithm (NPO/TPN/ENTERAL FEEDS) SC ×4 (06:29→18:31)
[2018-01-08] MEDS: CALCIUM ACETATE 667 MG CAP PO ×3 (07:55→17:55)
[2018-01-08] MEDS: SEVELAMER CARBONATE 800 MG TABLET PO ×3 (07:55→17:55)
[2018-01-08] MEDS: INSULIN GLARGINE [LANTus] (100 UNITS/ML) SYG SC (08:23)
[2018-01-08] MEDS: HYDROCHLOROTHIAZIDE 12.5 MG CAP PO (08:41)
[2018-01-08] MEDS: DOCUSATE SODIUM 100 MG CAP PO (08:41)
[2018-01-08] MEDS: LOSARTAN 50 MG TAB PO (08:41)
[2018-01-08] MEDS: ASPIRIN (EC) 81 MG TAB PO (08:41)
[2018-01-08] MEDS: METOPROLOL 50 MG TAB PO ×2 (08:42→20:39)
[2018-01-08] MEDS: ISOSORBIDE MONONITRATE(SR)30 MG TAB PO (08:42)
[2018-01-08] MEDS: GABAPENTIN 400 MG CAP PO ×3 (08:43→20:39)
[2018-01-08] MEDS: CLOPIDOGREL 75 MG TAB PO (08:43)
[2018-01-08] MEDS: AMLODIPINE 10 MG TAB PO (08:43)
[2018-01-08] MEDS: morphine 2 MG INJ IV ×2 (11:27→20:26)
[2018-01-08] MEDS ORDERED: morphine 2 MG INJ IV (11:30)
[2018-01-08 12:41] LABS: ADD MAN DIFF? NO
[2018-01-08 12:43] LABS: WHITE BLOOD COUNT 9.9 10^3/ul (4.8-10.8)
[2018-01-08 12:43] LABS: BASOPHIL # 0.1 10^3/ul (0.0-0.1); BASOPHILS % 0.6 % (0.0-2.0); EOSINOPHILS # 0.2 10^3/ul (0.0-0.5); EOSINOPHILS % 1.5 % (0.0-7.0); HEMATOCRIT 36.6 % (42.0-52.0); LYMPHOCYTES % 10.2 % (15.0-51.0); MEAN CORPUSCULAR HEMOGLOBIN 27.8 pg (29.0-33.0); MEAN CORPUSCULAR HGB CONC 32.8 g/dl (32.0-37.0); MEAN CORPUSCULAR VOLUME 84.7 fl (82.0-101.0); MEAN PLATELET VOLUME 11.4 fl (7.4-10.4); MONOCYTE # 1.2 10^3/ul (0.3-0.9); MONOCYTES % 11.7 % (0.0-11.0); NEUTROPHIL # 7.4 10^3/ul (1.6-7.5); NEUTROPHILS % 75.5 % (39.0-77.0); PLATELET COUNT 161 10^3/UL (140-415); RED BLOOD COUNT 4.32 10^6/ul (4.70-6.10); RED CELL DISTRIBUTION WIDTH 17.7 % (11.5-14.5)
[2018-01-08 12:53] LABS: AADO2 Arterial 36.6 mmHg (7.0-24.0); Allen Test ACCEPTAB; Arterial Base Excess 2.5 mmol/L (-3.0-3); Arterial Blood Gas Oxygen Sat 94.6 mmHG (95.0-98.0); Arterial COHb 1.1 % (0.0-3.0); Arterial Fraction of Oxyhgb 93.3 % (93.0-99.0); Arterial HCO3 24.6 mmol/L (22.0-26.0); Arterial MetHb 0.3 % (0.0-1.5); Arterial Total Hemglobin 12.8 g/dl (12.0-18.0); Arterial pCO2 30.6 mmhg (35-45); MODE ROOM AIR; Site Right Radial
[2018-01-08 13:08] LABS: AMMONIA < 9 umol/l (9-30)
[2018-01-08 13:13] LABS: TROPONIN-I 0.063 ng/ml (0.000-0.120)
[2018-01-08 13:15] LABS: ALANINE AMINOTRANSFERASE 25 IU/L (13-69); ALBUMIN 4.3 g/dl (3.3-4.9); ALBUMIN/GLOBULIN RATIO 1.22; ALKALINE PHOSPHATASE 63 IU/L (42-121); ANION GAP 18 (8-16); ASPARTATE AMINO TRANSFERASE 29 IU/L (15-46); BILIRUBIN,INDIRECT 0.6 mg/dl (0-1.1); BILIRUBIN,TOTAL 0.6 mg/dl (0.2-1.3); BLOOD UREA NITROGEN 38 mg/dl (7-20); CALCIUM 8.9 mg/dl (8.4-10.2); CARBON DIOXIDE 23 mmol/L (21-31); CHLORIDE 100 mmol/L (97-110); CREATININE 8.01 mg/dl (0.61-1.24); GLUCOSE 153 mg/dl (70-220); POTASSIUM 4.4 mmol/L (3.5-5.1); SODIUM 137 mmol/L (135-144); TOTAL PROTEIN 7.8 g/dl (6.1-8.1)
[2018-01-08] MEDS: LABETALOL HCL 20MG INJ IV (13:19)
[2018-01-08] MEDS: CEFEPIME 1GM/50 ML (PMX) 50 ML IVPB (14:45)
[2018-01-08] MEDS: HYDROmorphONE 1 MG/ML SYG IV (15:27)
[2018-01-08] MEDS ORDERED: HYDROmorphONE 1 MG/ML SYG IV (15:30)
[2018-01-08] MEDS: LORAZEPAM 2 MG INJ IV (16:38)
[2018-01-08] MEDS: ONDANSETRON 4 MG INJ IV (20:15)
[2018-01-08] MEDS: TERAZOSIN 1 MG CAP PO (20:38)
[2018-01-08] MEDS: BACLOFEN 10 MG TAB PO (20:38)
[2018-01-08] MEDS: ATORVASTATIN 80 MG TAB PO (20:39)
[2018-01-08] MEDS: ROPINIROLE 0.25 MG TAB PO (20:39)
[2018-01-09] MEDS: Insulin NOVOLOG SS MILD Algorithm (NPO/TPN/ENTERAL FEEDS) SC ×4 (00:33→17:49)
[2018-01-09] MEDS: ACCU-CHEK XX (01:21)
[2018-01-09] MEDS: DEXTROSE 5%-0.45% NACL 1,000 ML IV (06:54)
[2018-01-09 07:24] LABS: ADD MAN DIFF? NO
[2018-01-09 07:27] LABS: BASOPHIL # 0.1 10^3/ul (0.0-0.1); BASOPHILS % 0.5 % (0.0-2.0); EOSINOPHILS # 0.3 10^3/ul (0.0-0.5); EOSINOPHILS % 3.2 % (0.0-7.0); HEMATOCRIT 34.4 % (42.0-52.0); LYMPHOCYTES # 0.9 10^3/ul (0.8-2.9); LYMPHOCYTES % 9.3 % (15.0-51.0); MEAN CORPUSCULAR HEMOGLOBIN 28.3 pg (29.0-33.0); MEAN CORPUSCULAR VOLUME 88.4 fl (82.0-101.0); MONOCYTE # 1.2 10^3/ul (0.3-0.9); MONOCYTES % 12.8 % (0.0-11.0); NEUTROPHILS % 73.8 % (39.0-77.0); PLATELET COUNT 149 10^3/UL (140-415); RED BLOOD COUNT 3.89 10^6/ul (4.70-6.10); RED CELL DISTRIBUTION WIDTH 18.1 % (11.5-14.5)
[2018-01-09 07:27] LABS: WHITE BLOOD COUNT 9.5 10^3/ul (4.8-10.8)
[2018-01-09] MEDS: SEVELAMER CARBONATE 800 MG TABLET PO ×3 (07:55→17:50)
[2018-01-09] MEDS: CALCIUM ACETATE 667 MG CAP PO ×3 (07:55→17:50)
[2018-01-09 07:57] LABS: ALANINE AMINOTRANSFERASE 26 IU/L (13-69); ALBUMIN 4.1 g/dl (3.3-4.9); ALBUMIN/GLOBULIN RATIO 1.13; ALKALINE PHOSPHATASE 57 IU/L (42-121); ANION GAP 20 (8-16); ASPARTATE AMINO TRANSFERASE 27 IU/L (15-46); BILIRUBIN,INDIRECT 0.7 mg/dl (0-1.1); BILIRUBIN,TOTAL 0.7 mg/dl (0.2-1.3); BLOOD UREA NITROGEN 49 mg/dl (7-20); CALCIUM 8.5 mg/dl (8.4-10.2); CARBON DIOXIDE 25 mmol/L (21-31); CHLORIDE 98 mmol/L (97-110); GLUCOSE 160 mg/dl (70-220); POTASSIUM 4.9 mmol/L (3.5-5.1); SODIUM 138 mmol/L (135-144); TOTAL PROTEIN 7.7 g/dl (6.1-8.1)
[2018-01-09] MEDS: INSULIN GLARGINE [LANTus] (100 UNITS/ML) SYG SC (08:11)
[2018-01-09] MEDS: METOPROLOL 50 MG TAB PO ×2 (08:49→20:36)
[2018-01-09] MEDS: HYDROCHLOROTHIAZIDE 12.5 MG CAP PO (08:49)
[2018-01-09] MEDS: LOSARTAN 50 MG TAB PO (08:49)
[2018-01-09] MEDS: DOCUSATE SODIUM 100 MG CAP PO (08:49)
[2018-01-09] MEDS: ASPIRIN (EC) 81 MG TAB PO (08:49)
[2018-01-09] MEDS: ISOSORBIDE MONONITRATE(SR)30 MG TAB PO (08:49)
[2018-01-09] MEDS: AMLODIPINE 10 MG TAB PO (08:50)
[2018-01-09] MEDS: CLOPIDOGREL 75 MG TAB PO (08:50)
[2018-01-09 08:51] LABS: MAGNESIUM 2.2 mg/dl (1.7-2.5)
[2018-01-09 08:51] LABS: PHOSPHORUS 9.1 mg/dl (2.5-4.9)
[2018-01-09] MEDS: CEFEPIME 1GM/50 ML (PMX) 50 ML IVPB (14:38)
[2018-01-09] MEDS: HYDROCODONE/APAP (5/325) TAB PO (19:47)
[2018-01-09] MEDS: ATORVASTATIN 80 MG TAB PO (20:35)
[2018-01-09] MEDS: TERAZOSIN 1 MG CAP PO (20:36)
[2018-01-09] MEDS: BACLOFEN 10 MG TAB PO (20:36)
[2018-01-09] MEDS: GENTAMICIN 150 MG in DEXTROSE 5% 100 ML IVPB (20:37)
[2018-01-09] MEDS: ROPINIROLE 0.25 MG TAB PO (20:40)
[2018-01-09] MEDS: INSULIN ASPART [NOVOLOG] 3 ML PEN SC (20:40)
[2018-01-10] MEDS: ACCU-CHEK XX (01:13)
[2018-01-10] MEDS: morphine 2 MG INJ IV (01:22)
[2018-01-10] MEDS: MAGNESIUM HYDROXIDE 30ML CUP PO (01:25)
[2018-01-10 03:12] LABS: ADD UMIC YES; UR ASCORBIC ACID NEGATIVE (NEGATIVE); UR BILIRUBIN (Dip) NEGATIVE (NEGATIVE); UR BLOOD (Dip) NEGATIVE (NEGATIVE); UR CLARITY CLEAR (CLEAR); UR COLOR YELLOW (YELLOW); UR GLUCOSE (Dip) 3+ mg/dL (NEGATIVE); UR KETONES (Dip) NEGATIVE (NEGATIVE); UR LEUKOCYTE ESTERASE (Dip) NEGATIVE Leu/ul (NEGATIVE); UR MUCUS FEW /HPF (NONE SEEN); UR NITRITE (Dip) NEGATIVE (NEGATIVE); UR RBC 0 /HPF (0-5); UR SPECIFIC GRAVITY (Dip) 1.006 (1.003-1.030); UR TOTAL PROTEIN (Dip) 3+ mg/dl (NEGATIVE); UR UROBILINOGEN (Dip) NEGATIVE (NEGATIVE); UR WBC 0 /HPF (0-5)
[2018-01-10 06:00] LABS: ADD MAN DIFF? NO
[2018-01-10 06:27] LABS: BASOPHIL # 0.1 10^3/ul (0.0-0.1); BASOPHILS % 0.7 % (0.0-2.0); EOSINOPHILS # 0.4 10^3/ul (0.0-0.5); EOSINOPHILS % 4.3 % (0.0-7.0); HEMATOCRIT 35.7 % (42.0-52.0); HEMOGLOBIN 11.4 g/dl (14.0-18.0); LYMPHOCYTES # 1.3 10^3/ul (0.8-2.9); MEAN CORPUSCULAR HEMOGLOBIN 28.1 pg (29.0-33.0); MEAN CORPUSCULAR HGB CONC 31.9 g/dl (32.0-37.0); MEAN CORPUSCULAR VOLUME 87.9 fl (82.0-101.0); MEAN PLATELET VOLUME 11.9 fl (7.4-10.4); MONOCYTE # 1.4 10^3/ul (0.3-0.9); MONOCYTES % 13.5 % (0.0-11.0); NEUTROPHILS % 67.9 % (39.0-77.0); PLATELET COUNT 145 10^3/UL (140-415); RED BLOOD COUNT 4.06 10^6/ul (4.70-6.10); RED CELL DISTRIBUTION WIDTH 17.6 % (11.5-14.5)
[2018-01-10 06:27] LABS: WHITE BLOOD COUNT 10.3 10^3/ul (4.8-10.8)
[2018-01-10 06:38] LABS: ANION GAP 17 (8-16); BLOOD UREA NITROGEN 38 mg/dl (7-20); CALCIUM 8.7 mg/dl (8.4-10.2); CARBON DIOXIDE 28 mmol/L (21-31); CHLORIDE 97 mmol/L (97-110); CREATININE 7.92 mg/dl (0.61-1.24); GLUCOSE 153 mg/dl (70-220); POTASSIUM 5.2 mmol/L (3.5-5.1); SODIUM 137 mmol/L (135-144)
[2018-01-10 06:42] LABS: VANCOMYCIN,RANDOM 12.7 ug/ml
[2018-01-10] MEDS: INSULIN ASPART [NOVOLOG] 3 ML PEN SC ×4 (08:28→21:21)
[2018-01-10] MEDS: INSULIN GLARGINE [LANTus] (100 UNITS/ML) SYG SC (08:28)
[2018-01-10] MEDS: CLOPIDOGREL 75 MG TAB PO (10:11)
[2018-01-10] MEDS: VANCOMYCIN 1 GM 250 ML IVPB (10:11)
[2018-01-10] MEDS: ASPIRIN (EC) 81 MG TAB PO (10:11)
[2018-01-10] MEDS: DOCUSATE SODIUM 100 MG CAP PO (10:11)
[2018-01-10] MEDS: HYDROCHLOROTHIAZIDE 12.5 MG CAP PO (10:55)
[2018-01-10] MEDS: SEVELAMER CARBONATE 800 MG TABLET PO ×3 (10:55→17:55)
[2018-01-10] MEDS: LOSARTAN 50 MG TAB PO (10:55)
[2018-01-10] MEDS: CALCIUM ACETATE 667 MG CAP PO ×3 (10:55→17:55)
[2018-01-10] MEDS: AMLODIPINE 10 MG TAB PO (10:56)
[2018-01-10] MEDS: ISOSORBIDE MONONITRATE(SR)30 MG TAB PO (10:56)
[2018-01-10] MEDS: METOPROLOL 50 MG TAB PO ×2 (10:56→21:15)
[2018-01-10] MEDS: POLYETHYLENE GLYCOL 17 GM PACKET PO (15:30)
[2018-01-10] MEDS ORDERED: LORAZEPAM 2 MG INJ IV (16:00)
[2018-01-10] MEDS: ATORVASTATIN 80 MG TAB PO (21:26)
[2018-01-10] MEDS: TERAZOSIN 1 MG CAP PO (21:26)
[2018-01-10 21:28] LABS: POTASSIUM 4.7 mmol/L (3.5-5.1)
[2018-01-11] MEDS: ACCU-CHEK XX (02:00)
[2018-01-11] MEDS: GENTAMICIN IN NACL, ISO-OSM 50 ML IVPB (05:40)
[2018-01-11] MEDS: INSULIN ASPART [NOVOLOG] 3 ML PEN SC ×3 (07:55→17:55)
[2018-01-11] MEDS: CALCIUM ACETATE 667 MG CAP PO ×3 (08:16→17:55)
[2018-01-11] MEDS: SEVELAMER CARBONATE 800 MG TABLET PO ×3 (08:16→17:55)
[2018-01-11] MEDS: INSULIN GLARGINE [LANTus] (100 UNITS/ML) SYG SC (08:27)
[2018-01-11] MEDS: DOCUSATE SODIUM 100 MG CAP PO (09:20)
[2018-01-11] MEDS: ISOSORBIDE MONONITRATE(SR)30 MG TAB PO (09:21)
[2018-01-11] MEDS: HYDROCHLOROTHIAZIDE 12.5 MG CAP PO (09:21)
[2018-01-11] MEDS: LOSARTAN 50 MG TAB PO (09:21)
[2018-01-11] MEDS: ASPIRIN (EC) 81 MG TAB PO (09:21)
[2018-01-11] MEDS: METOPROLOL 50 MG TAB PO (09:21)
[2018-01-11] MEDS: CLOPIDOGREL 75 MG TAB PO (09:21)
[2018-01-11] MEDS: POLYETHYLENE GLYCOL 17 GM PACKET PO (09:22)
[2018-01-11] MEDS: AMLODIPINE 10 MG TAB PO (09:22)
[2018-01-11 10:06] LABS: ADD MAN DIFF? NO
[2018-01-11 10:20] LABS: WHITE BLOOD COUNT 8.2 10^3/ul (4.8-10.8)
[2018-01-11 10:20] LABS: BASOPHIL # 0.1 10^3/ul (0.0-0.1); BASOPHILS % 0.9 % (0.0-2.0); EOSINOPHILS # 0.5 10^3/ul (0.0-0.5); EOSINOPHILS % 6.2 % (0.0-7.0); HEMATOCRIT 38.1 % (42.0-52.0); HEMOGLOBIN 11.8 g/dl (14.0-18.0); LYMPHOCYTES % 12.5 % (15.0-51.0); MEAN CORPUSCULAR HEMOGLOBIN 28.1 pg (29.0-33.0); MEAN CORPUSCULAR VOLUME 90.7 fl (82.0-101.0); MEAN PLATELET VOLUME 12.1 fl (7.4-10.4); MONOCYTES % 12.1 % (0.0-11.0); NEUTROPHIL # 5.6 10^3/ul (1.6-7.5); NEUTROPHILS % 67.9 % (39.0-77.0); PLATELET COUNT 139 10^3/UL (140-415); RED CELL DISTRIBUTION WIDTH 17.1 % (11.5-14.5)
[2018-01-11 10:47] LABS: ANION GAP 19 (8-16); BLOOD UREA NITROGEN 42 mg/dl (7-20); CALCIUM 8.7 mg/dl (8.4-10.2); CARBON DIOXIDE 27 mmol/L (21-31); CHLORIDE 93 mmol/L (97-110); CREATININE 6.73 mg/dl (0.61-1.24); GLUCOSE 196 mg/dl (70-220); MAGNESIUM 2.4 mg/dl (1.7-2.5); POTASSIUM 5.2 mmol/L (3.5-5.1); SODIUM 134 mmol/L (135-144)
[2018-01-11 10:48] LABS: IRON 40 ug/dl (35-150)
[2018-01-11 10:58] LABS: % IRON SATURATION 22 % SAT (22-52); TOTAL IRON BINDING CAPACITY 183 ug/dl (241-421)
[2018-01-11] MEDS: HYDROCODONE/APAP (5/325) TAB PO (12:28)
[2018-01-16 14:06] LABS: PROCALCITONIN 0.38 ng/mL (<0.10)
== END 2018-01-11 18:34 | DRG 871 ==
LOC: E/R 13:43 → TEL 01-07 12:55 → 2NE 01-04 06:06
PROC: 5A1D70Z Performance of Urinary Filtration, Intermittent, Less than 6 Hours Per Day (ICD-10-PCS; principal; 2018-01-05)
DX: A41.9 Sepsis, unspecified organism (principal); N18.6 End stage renal disease; G93.41 Metabolic encephalopathy; J18.9 Pneumonia, unspecified organism; E87.2 Acidosis; I12.0 Hypertensive chronic kidney disease with stage 5 chronic kidney disease or end stage renal disease; K56.7 Ileus, unspecified; F33.9 Major depressive disorder, recurrent, unspecified; E11.22 Type 2 diabetes mellitus with diabetic chronic kidney disease; D63.1 Anemia in chronic kidney disease; E78.5 Hyperlipidemia, unspecified; E66.9 Obesity, unspecified; I25.10 Atherosclerotic heart disease of native coronary artery without angina pectoris; E11.42 Type 2 diabetes mellitus with diabetic polyneuropathy; R53.81 Other malaise; E83.9 Disorder of mineral metabolism, unspecified; E87.5 Hyperkalemia; Z68.28 Body mass index [BMI] 28.0-28.9, adult; Z99.2 Dependence on renal dialysis; Z79.4 Long term (current) use of insulin
CPT/HCPCS: 36415; 36600; 70450; 70551; 71045; 74176; 80048; 80053; 80061; 80202; 80307; 81001; 82140; 82803; 82962; 83036; 83540; 83605; 83735; 84100; 84132; 84145; 84436; 84443; 84479; 84484; 85025; 85610; 86706; 87040; 87340; 90935; 92610; 93005; 93931; 93971; 96361; 96365; 96366; 96368; 97110; 97161; 97164; 97530; 99217; 99285-25; G0378

== ENCOUNTER 2018-03-01 17:52 | Emergency (ER) | payer MEDICARE, OTHER ==
[2018-03-01 18:40] LABS: ADD MAN DIFF? NO
[2018-03-01 18:43] LABS: BASOPHILS % 0.4 % (0.0-2.0); EOSINOPHILS # 0.1 10^3/ul (0.0-0.5); EOSINOPHILS % 1.8 % (0.0-7.0); HEMATOCRIT 31.6 % (42.0-52.0); HEMOGLOBIN 10.2 g/dl (14.0-18.0); LYMPHOCYTES % 12.9 % (15.0-51.0); MEAN CORPUSCULAR HEMOGLOBIN 28.6 pg (29.0-33.0); MEAN CORPUSCULAR HGB CONC 32.3 g/dl (32.0-37.0); MEAN CORPUSCULAR VOLUME 88.5 fl (82.0-101.0); MEAN PLATELET VOLUME 10.9 fl (7.4-10.4); MONOCYTE # 0.8 10^3/ul (0.3-0.9); MONOCYTES % 10.6 % (0.0-11.0); NEUTROPHIL # 5.5 10^3/ul (1.6-7.5); PLATELET COUNT 180 10^3/UL (140-415); RED BLOOD COUNT 3.57 10^6/ul (4.70-6.10)
[2018-03-01 18:43] LABS: WHITE BLOOD COUNT 7.4 10^3/ul (4.8-10.8)
[2018-03-01 18:57] LABS: INR 1.13; PROTIME 14.7 Sec (11.9-14.9); PT RATIO 1.1
[2018-03-01 18:58] LABS: PARTIAL THROMBOPLASTIN TIME 29.2 Sec (23.0-35.0)
[2018-03-01 19:03] LABS: ALANINE AMINOTRANSFERASE 25 IU/L (13-69); ALBUMIN 3.7 g/dl (3.3-4.9); ALBUMIN/GLOBULIN RATIO 1.05; ALKALINE PHOSPHATASE 60 IU/L (42-121); ANION GAP 18 (8-16); ASPARTATE AMINO TRANSFERASE 23 IU/L (15-46); BILIRUBIN,INDIRECT 0.2 mg/dl (0-1.1); BILIRUBIN,TOTAL 0.2 mg/dl (0.2-1.3); BLOOD UREA NITROGEN 42 mg/dl (7-20); CARBON DIOXIDE 25 mmol/L (21-31); CHLORIDE 100 mmol/L (97-110); CREATININE 8.77 mg/dl (0.61-1.24); GLUCOSE 192 mg/dl (70-220); POTASSIUM 4.7 mmol/L (3.5-5.1); SODIUM 138 mmol/L (135-144); TOTAL PROTEIN 7.2 g/dl (6.1-8.1)
[2018-03-01 19:14] LABS: TROPONIN-I 0.032 ng/ml (0.000-0.120)
[2018-03-01 19:42] LABS: ADD UMIC YES; UR ASCORBIC ACID NEGATIVE (NEGATIVE); UR BILIRUBIN (Dip) NEGATIVE (NEGATIVE); UR BLOOD (Dip) NEGATIVE (NEGATIVE); UR CLARITY CLEAR (CLEAR); UR COLOR STRAW (YELLOW); UR GLUCOSE (Dip) 3+ mg/dL (NEGATIVE); UR KETONES (Dip) NEGATIVE (NEGATIVE); UR LEUKOCYTE ESTERASE (Dip) NEGATIVE Leu/ul (NEGATIVE); UR NITRITE (Dip) NEGATIVE (NEGATIVE); UR RBC 1 /HPF (0-5); UR SPECIFIC GRAVITY (Dip) 1.007 (1.003-1.030); UR TOTAL PROTEIN (Dip) 3+ mg/dl (NEGATIVE); UR UROBILINOGEN (Dip) NEGATIVE (NEGATIVE); UR WBC 0 /HPF (0-5)
== END 2018-03-01 22:36 | disposition home or self-care (01) ==
LOC: E/R 17:52
DX: R20.2 Paresthesia of skin (principal); R53.1 Weakness; R07.9 Chest pain, unspecified; E11.9 Type 2 diabetes mellitus without complications; Z79.01 Long term (current) use of anticoagulants; Z79.4 Long term (current) use of insulin; Z79.82 Long term (current) use of aspirin
CPT/HCPCS: 36415; 70450; 71045; 80053; 81001; 84443; 84484; 85025; 85610; 85730; 93005; 99285-25

== ENCOUNTER 2018-12-26 07:34 | Inpatient (IN) | payer MEDICARE, OTHER ==
[2018-12-26] MEDS: IPRATROPIUM (NEB) 0.5 MG/2.5 ML AMP NEB (08:07)
[2018-12-26] MEDS: ALBUTEROL 0.083% (NEB) 2.5 MG/3 ML AMP NEB (08:07)
[2018-12-26 08:09] LABS: ADD MAN DIFF? NO
[2018-12-26 08:14] LABS: WHITE BLOOD COUNT 13.8 10^3/ul (4.8-10.8)
[2018-12-26 08:14] LABS: ABNORMAL IP MESSAGE 1; BASOPHIL # 0.1 10^3/ul (0.0-0.1); BASOPHILS % 0.4 % (0.0-2.0); EOSINOPHILS # 0.4 10^3/ul (0.0-0.5); EOSINOPHILS % 2.8 % (0.0-7.0); HEMATOCRIT 31.6 % (42.0-52.0); LYMPHOCYTES # 0.9 10^3/ul (0.8-2.9); LYMPHOCYTES % 6.1 % (15.0-51.0); MEAN CORPUSCULAR HEMOGLOBIN 27.7 pg (29.0-33.0); MEAN CORPUSCULAR HGB CONC 31.6 g/dl (32.0-37.0); MEAN CORPUSCULAR VOLUME 87.5 fl (82.0-101.0); MEAN PLATELET VOLUME 12.9 fl (7.4-10.4); MONOCYTE # 1.6 10^3/ul (0.3-0.9); MONOCYTES % 11.2 % (0.0-11.0); NEUTROPHIL # 10.9 10^3/ul (1.6-7.5); NEUTROPHILS % 78.9 % (39.0-77.0); PLATELET COUNT 132 10^3/UL (140-415); POSITIVE DIFF @See below; RED BLOOD COUNT 3.61 10^6/ul (4.70-6.10); RED CELL DISTRIBUTION WIDTH 17.5 % (11.5-14.5)
[2018-12-26 08:33] LABS: INR 1.31; PROTIME 16.4 Sec (11.9-14.9); PT RATIO 1.3
[2018-12-26 08:34] LABS: PARTIAL THROMBOPLASTIN TIME 35.2 Sec (23.0-35.0)
[2018-12-26] MEDS: NITROGLYCERIN 2% 1 GM OINT PKT TD (08:36)
[2018-12-26] MEDS: CEFTRIAXONE 1 GM/50 ML (PMX) 50 ML IVPB (09:19)
[2018-12-26] MEDS: AZITHROMYCIN 500MG/NS (PMX) 250 ML IV (09:30)
[2018-12-26] MEDS ORDERED: ACETAMINOPHEN 325 MG TAB PO (09:30)
[2018-12-26] MEDS ORDERED: ONDANSETRON 4 MG INJ IV (09:30)
[2018-12-26] MEDS ORDERED: NACL 0.9% 3 ML SYG IV (09:30)
[2018-12-26 09:47] LABS: ANION GAP 20 (5-13); BLOOD UREA NITROGEN 64 mg/dl (7-20); CALCIUM 7.9 mg/dl (8.4-10.2); CARBON DIOXIDE 20 mmol/L (21-31); CHLORIDE 96 mmol/L (97-110); CREATININE 11.33 mg/dl (0.61-1.24); GLUCOSE 143 mg/dl (70-220); POTASSIUM 5.5 mmol/L (3.5-5.1); SODIUM 136 mmol/L (135-144)
[2018-12-26] MEDS ORDERED: SODIUM CHLORIDE 0.9% 1L BAG IV (11:00)
[2018-12-26] MEDS ORDERED: HEPARIN 1000 UNITS/ML 10 ML INJ CATHETER (11:00)
[2018-12-26] MEDS ORDERED: ALBUMIN HUMAN 25% 100 ML IV (11:00)
[2018-12-26] MEDS ORDERED: GLUCOSE GEL 15 GRAM TUBE PO ×2 (11:30)
[2018-12-26] MEDS ORDERED: GLUCOSE GEL 15 GRAM TUBE BUCCAL (11:30)
[2018-12-26] MEDS ORDERED: DEXTROSE 50% 50 ML SYRINGE IV ×2 (11:30)
[2018-12-26] MEDS ORDERED: GLUCAGON 1 MG INJ IM (11:30)
[2018-12-26] MEDS: INSULIN ASPART [NOVOLOG] 3 ML PEN SC ×3 (12:05→21:02)
[2018-12-26 12:54] LABS: HEPATITIS B SURFACE ANTIBODY POSITIVE (NEGATIVE)
[2018-12-26 13:45] LABS: HEPATITIS B SURFACE ANTIGEN NEGATIVE (NEGATIVE)
[2018-12-26 14:43] LABS: CREATINE KINASE 122 IU/L (23-200)
[2018-12-26 14:57] LABS: CK-MB 1.25 ng/ml (0.0-2.4); TROPONIN-I 0.048 ng/ml (0.000-0.120)
[2018-12-26] MEDS ORDERED: GUAIFENESIN/CODEINE 5ML CUP PO (16:00)
[2018-12-26] MEDS: HYDROmorphONE 0.5 MG/0.5 ML SYG IV (17:11)
[2018-12-26] MEDS: LABETALOL HCL 20MG INJ IV (17:22)
[2018-12-26] MEDS: ALBUTEROL/IPRATROPIUM (NEB) 3 ML AMP HHN (17:37)
[2018-12-26] MEDS ORDERED: LEVALBUTEROL (NEB) 0.31 MG/3 ML AMP HHN (18:00)
[2018-12-26] MEDS ORDERED: LABETALOL HCL 20MG INJ IV (18:00)
[2018-12-26] MEDS: FUROSEMIDE 100 MG INJ IV (18:53)
[2018-12-26 19:54] LABS: CREATINE KINASE 112 IU/L (23-200)
[2018-12-26 20:30] LABS: CK INDEX 0.9; CK-MB 0.99 ng/ml (0.0-2.4); TROPONIN-I 0.058 ng/ml (0.000-0.120)
[2018-12-26] MEDS: TERAZOSIN 1 MG CAP PO (20:46)
[2018-12-26] MEDS: METOPROLOL 50 MG TAB PO (20:47)
[2018-12-26] MEDS: HEPARIN 5,000 UNIT/1 ML VIAL SC (21:02)
[2018-12-27] MEDS: ALBUTEROL/IPRATROPIUM (NEB) 3 ML AMP HHN ×4 (01:31→12:49)
[2018-12-27] MEDS: ACCU-CHEK XX (02:55)
[2018-12-27] MEDS: FUROSEMIDE 100 MG INJ IV (06:25)
[2018-12-27 07:15] LABS: ADD MAN DIFF? NO
[2018-12-27 07:20] LABS: ABNORMAL IP MESSAGE 1; BASOPHIL # 0.1 10^3/ul (0.0-0.1); BASOPHILS % 0.8 % (0.0-2.0); EOSINOPHILS # 0.2 10^3/ul (0.0-0.5); EOSINOPHILS % 2.6 % (0.0-7.0); LYMPHOCYTES # 1.1 10^3/ul (0.8-2.9); LYMPHOCYTES % 14.1 % (15.0-51.0); MEAN CORPUSCULAR HGB CONC 30.3 g/dl (32.0-37.0); MEAN CORPUSCULAR VOLUME 88.9 fl (82.0-101.0); MEAN PLATELET VOLUME 12.7 fl (7.4-10.4); MONOCYTE # 1.5 10^3/ul (0.3-0.9); MONOCYTES % 19.9 % (0.0-11.0); NEUTROPHIL # 4.8 10^3/ul (1.6-7.5); NEUTROPHILS % 62.3 % (39.0-77.0); PLATELET COUNT 130 10^3/UL (140-415); POSITIVE DIFF @See below; RED BLOOD COUNT 3.71 10^6/ul (4.70-6.10); RED CELL DISTRIBUTION WIDTH 17.7 % (11.5-14.5)
[2018-12-27 07:20] LABS: WHITE BLOOD COUNT 7.7 10^3/ul (4.8-10.8)
[2018-12-27 07:48] LABS: ALANINE AMINOTRANSFERASE 17 IU/L (13-69); ALBUMIN 3.9 g/dl (3.3-4.9); ALBUMIN/GLOBULIN RATIO 1.08; ALKALINE PHOSPHATASE 78 IU/L (42-121); ANION GAP 17 (5-13); ASPARTATE AMINO TRANSFERASE 20 IU/L (15-46); BILIRUBIN,INDIRECT 0.4 mg/dl (0-1.1); BILIRUBIN,TOTAL 0.4 mg/dl (0.2-1.3); BLOOD UREA NITROGEN 45 mg/dl (7-20); CALCIUM 8.1 mg/dl (8.4-10.2); CARBON DIOXIDE 25 mmol/L (21-31); CHLORIDE 97 mmol/L (97-110); CREATININE 9.53 mg/dl (0.61-1.24); GLUCOSE 172 mg/dl (70-220); POTASSIUM 4.2 mmol/L (3.5-5.1); SODIUM 139 mmol/L (135-144); TOTAL PROTEIN 7.5 g/dl (6.1-8.1)
[2018-12-27] MEDS: INSULIN ASPART [NOVOLOG] 3 ML PEN SC ×2 (07:48→11:50)
[2018-12-27 08:06] LABS: HEMOGLOBIN A1C 6.4 % (0-5.9)
[2018-12-27] MEDS: ASPIRIN (EC) 81 MG TAB PO (14:08)
[2018-12-27] MEDS: CLOPIDOGREL 75 MG TAB PO (14:09)
[2018-12-27] MEDS: ISOSORBIDE MONONITRATE(SR)30 MG TAB PO (14:10)
[2018-12-27] MEDS: METOPROLOL 50 MG TAB PO (14:11)
[2018-12-27] MEDS: AMLODIPINE 10 MG TAB PO (14:12)
[2018-12-27] MEDS: HEPARIN 5,000 UNIT/1 ML VIAL SC (14:21)
== END 2018-12-27 15:54 | disposition home or self-care (01) | DRG 189 ==
LOC: E/R 07:34 → TEL 09:12
PROVIDERS: Internal Medicine
PROC: 5A1D70Z Performance of Urinary Filtration, Intermittent, Less than 6 Hours Per Day (ICD-10-PCS; principal; 2018-12-26)
DX: J81.0 Acute pulmonary edema (principal); J96.00 Acute respiratory failure, unspecified whether with hypoxia or hypercapnia; N18.6 End stage renal disease; I12.0 Hypertensive chronic kidney disease with stage 5 chronic kidney disease or end stage renal disease; I16.1 Hypertensive emergency; E87.5 Hyperkalemia; E87.70 Fluid overload, unspecified; E11.22 Type 2 diabetes mellitus with diabetic chronic kidney disease; Z79.4 Long term (current) use of insulin; Z99.2 Dependence on renal dialysis
CPT/HCPCS: 36415; 71045; 80048; 80053; 82550; 82553; 82962; 83036; 84484; 85025; 85610; 85730; 86706; 87040-91; 87081; 87340; 90935; 93005; 94640; 94664; 99285-25

== ENCOUNTER 2019-02-11 13:35 | Inpatient (IN) | payer MEDICARE, OTHER ==
[2019-02-11] MEDS: SOD CHLORIDE 0.9% 500 ML IV (14:09)
[2019-02-11 14:12] LABS: ADD MAN DIFF? NO
[2019-02-11 14:19] LABS: BASOPHILS % 0.7 % (0.0-2.0); EOSINOPHILS # 0.1 10^3/ul (0.0-0.5); EOSINOPHILS % 2.5 % (0.0-7.0); HEMATOCRIT 37.3 % (42.0-52.0); HEMOGLOBIN 11.5 g/dl (14.0-18.0); LYMPHOCYTES # 0.8 10^3/ul (0.8-2.9); MEAN CORPUSCULAR HEMOGLOBIN 26.7 pg (29.0-33.0); MEAN CORPUSCULAR HGB CONC 30.8 g/dl (32.0-37.0); MEAN CORPUSCULAR VOLUME 86.7 fl (82.0-101.0); MEAN PLATELET VOLUME 12.4 fl (7.4-10.4); MONOCYTE # 0.6 10^3/ul (0.3-0.9); NEUTROPHILS % 71.4 % (39.0-77.0); PLATELET COUNT 145 10^3/UL (140-415); RED CELL DISTRIBUTION WIDTH 15.7 % (11.5-14.5)
[2019-02-11 14:19] LABS: WHITE BLOOD COUNT 5.6 10^3/ul (4.8-10.8)
[2019-02-11 14:34] LABS: ALANINE AMINOTRANSFERASE 19 IU/L (13-69); ALBUMIN/GLOBULIN RATIO 1.21; ALKALINE PHOSPHATASE 99 IU/L (42-121); ANION GAP 12 (5-13); ASPARTATE AMINO TRANSFERASE 33 IU/L (15-46); BILIRUBIN,INDIRECT 0.2 mg/dl (0-1.1); BILIRUBIN,TOTAL 0.2 mg/dl (0.2-1.3); BLOOD UREA NITROGEN 32 mg/dl (7-20); CALCIUM 8.5 mg/dl (8.4-10.2); CARBON DIOXIDE 28 mmol/L (21-31); CHLORIDE 96 mmol/L (97-110); CREATININE 7.79 mg/dl (0.61-1.24); GLUCOSE 156 mg/dl (70-220); POTASSIUM 4.6 mmol/L (3.5-5.1); SODIUM 136 mmol/L (135-144); TOTAL PROTEIN 7.3 g/dl (6.1-8.1)
[2019-02-11 14:36] LABS: INR 1.18; PROTIME 15.1 Sec (11.9-14.9); PT RATIO 1.2
[2019-02-11 14:37] LABS: PARTIAL THROMBOPLASTIN TIME 33.4 Sec (23.0-35.0)
[2019-02-11 14:57] LABS: ACETAMINOPHEN < 10.0 ug/ml (10.0-30.0); ETHANOL < 10.0 mg/dl (0-0); SALICYLATE < 1.0 mg/dl (5.0-30.0)
[2019-02-11] MEDS ORDERED: NACL 0.9% 3 ML SYG IV (15:00)
[2019-02-11] MEDS ORDERED: ONDANSETRON 4 MG INJ IV (15:00)
[2019-02-11] MEDS ORDERED: ACETAMINOPHEN 325 MG TAB PO ×2 (15:00)
[2019-02-11] MEDS: hydrALAzine 20 MG INJ IV ×3 (15:44→23:37)
[2019-02-11] MEDS ORDERED: GLUCAGON 1 MG INJ IM (16:00)
[2019-02-11] MEDS ORDERED: GLUCOSE GEL 15 GRAM TUBE PO ×2 (16:00)
[2019-02-11] MEDS ORDERED: GLUCOSE GEL 15 GRAM TUBE BUCCAL (16:00)
[2019-02-11] MEDS ORDERED: DEXTROSE 50% 50 ML SYRINGE IV ×2 (16:00)
[2019-02-11 16:46] LABS: LACTIC ACID 1.5 mmol/L (0.5-2.0)
[2019-02-11 16:47] LABS: AMMONIA 10 umol/l (9-30)
[2019-02-11] MEDS: INSULIN ASPART [NOVOLOG] 3 ML PEN SC ×2 (17:00→21:00)
[2019-02-11 19:27] LABS: LACTIC ACID 1.5 mmol/L (0.5-2.0)
[2019-02-12] MEDS: INSULIN ASPART [NOVOLOG] 3 ML PEN SC ×6 (01:00→21:00)
[2019-02-12] MEDS: hydrALAzine 20 MG INJ IV ×5 (03:47→23:06)
[2019-02-12 06:12] LABS: ADD MAN DIFF? NO
[2019-02-12 06:22] LABS: ABNORMAL IP MESSAGE 1; BASOPHIL # 0.1 10^3/ul (0.0-0.1); BASOPHILS % 0.4 % (0.0-2.0); EOSINOPHILS % 0.1 % (0.0-7.0); HEMATOCRIT 38.4 % (42.0-52.0); LYMPHOCYTES # 0.8 10^3/ul (0.8-2.9); LYMPHOCYTES % 5.4 % (15.0-51.0); MEAN CORPUSCULAR HEMOGLOBIN 26.6 pg (29.0-33.0); MEAN CORPUSCULAR HGB CONC 31.3 g/dl (32.0-37.0); MEAN CORPUSCULAR VOLUME 85.1 fl (82.0-101.0); MEAN PLATELET VOLUME 13.3 fl (7.4-10.4); MONOCYTE # 0.6 10^3/ul (0.3-0.9); MONOCYTES % 4.4 % (0.0-11.0); NEUTROPHIL # 12.5 10^3/ul (1.6-7.5); NEUTROPHILS % 89.3 % (39.0-77.0); PLATELET COUNT 162 10^3/UL (140-415); POSITIVE DIFF @See below; RED BLOOD COUNT 4.51 10^6/ul (4.70-6.10); RED CELL DISTRIBUTION WIDTH 16.2 % (11.5-14.5)
[2019-02-12 07:02] LABS: ALANINE AMINOTRANSFERASE 22 IU/L (13-69); ALBUMIN 3.5 g/dl (3.3-4.9); ALBUMIN/GLOBULIN RATIO 1.09; ALKALINE PHOSPHATASE 98 IU/L (42-121); ANION GAP 14 (5-13); ASPARTATE AMINO TRANSFERASE 33 IU/L (15-46); BILIRUBIN,INDIRECT 0.4 mg/dl (0-1.1); BILIRUBIN,TOTAL 0.4 mg/dl (0.2-1.3); BLOOD UREA NITROGEN 44 mg/dl (7-20); CALCIUM 8.4 mg/dl (8.4-10.2); CARBON DIOXIDE 25 mmol/L (21-31); CHLORIDE 98 mmol/L (97-110); CREATININE 9.02 mg/dl (0.61-1.24); GLUCOSE 169 mg/dl (70-220); MAGNESIUM 2.3 mg/dl (1.7-2.5); PHOSPHORUS 6.5 mg/dl (2.5-4.9); POTASSIUM 5.2 mmol/L (3.5-5.1); SODIUM 137 mmol/L (135-144); TOTAL PROTEIN 6.7 g/dl (6.1-8.1)
[2019-02-12 08:10] LABS: HEMOGLOBIN A1C 7.1 % (0-5.9)
[2019-02-12] MEDS ORDERED: SODIUM CHLORIDE 0.9% 1L BAG IV (11:00)
[2019-02-12] MEDS ORDERED: HEPARIN 1000 UNITS/ML 10 ML INJ CATHETER (11:00)
[2019-02-12] MEDS ORDERED: ALBUMIN HUMAN 25% 100 ML IV (11:00)
[2019-02-12 18:02] LABS: HEPATITIS B SURFACE ANTIGEN NEGATIVE (NEGATIVE)
[2019-02-12] MEDS: morphine 2 MG INJ IV (21:09)
[2019-02-13] MEDS: INSULIN ASPART [NOVOLOG] 3 ML PEN SC ×6 (00:28→21:43)
[2019-02-13] MEDS: hydrALAzine 20 MG INJ IV ×3 (01:41→14:27)
[2019-02-13] MEDS: METOPROLOL 5 MG INJ IV (02:28)
[2019-02-13] MEDS: morphine 2 MG INJ IV ×2 (03:58→11:11)
[2019-02-13] MEDS: ONDANSETRON 4 MG INJ IV (13:03)
[2019-02-13] MEDS: ENALAPRILAT 1.25 MG INJ IV (13:08)
[2019-02-13 14:14] LABS: ADD MAN DIFF? NO
[2019-02-13] MEDS ORDERED: ONDANSETRON 4 MG INJ IV (15:00)
[2019-02-13 16:14] LABS: BASOPHILS % 0.3 % (0.0-2.0); EOSINOPHILS % 0.1 % (0.0-7.0); HEMATOCRIT 46.7 % (42.0-52.0); HEMOGLOBIN 14.1 g/dl (14.0-18.0); LYMPHOCYTES # 0.8 10^3/ul (0.8-2.9); LYMPHOCYTES % 5.6 % (15.0-51.0); MEAN CORPUSCULAR HEMOGLOBIN 26.8 pg (29.0-33.0); MEAN CORPUSCULAR HGB CONC 30.2 g/dl (32.0-37.0); MEAN CORPUSCULAR VOLUME 88.6 fl (82.0-101.0); MEAN PLATELET VOLUME 12.5 fl (7.4-10.4); MONOCYTES % 6.9 % (0.0-11.0); NEUTROPHIL # 12.9 10^3/ul (1.6-7.5); NEUTROPHILS % 86.6 % (39.0-77.0); PLATELET COUNT 221 10^3/UL (140-415); RED BLOOD COUNT 5.27 10^6/ul (4.70-6.10); RED CELL DISTRIBUTION WIDTH 16.3 % (11.5-14.5)
[2019-02-13 16:14] LABS: WHITE BLOOD COUNT 14.9 10^3/ul (4.8-10.8)
[2019-02-13 16:33] LABS: ANION GAP 21 (5-13); BLOOD UREA NITROGEN 25 mg/dl (7-20); CALCIUM 9.6 mg/dl (8.4-10.2); CARBON DIOXIDE 23 mmol/L (21-31); CHLORIDE 94 mmol/L (97-110); CREATININE 5.84 mg/dl (0.61-1.24); GLUCOSE 192 mg/dl (70-220); POTASSIUM 4.9 mmol/L (3.5-5.1); SODIUM 138 mmol/L (135-144)
[2019-02-14] MEDS: INSULIN ASPART [NOVOLOG] 3 ML PEN SC ×6 (01:19→21:50)
[2019-02-14 05:32] LABS: ADD MAN DIFF? NO
[2019-02-14 05:42] LABS: WHITE BLOOD COUNT 11.2 10^3/ul (4.8-10.8)
[2019-02-14 05:42] LABS: BASOPHIL # 0.1 10^3/ul (0.0-0.1); BASOPHILS % 0.4 % (0.0-2.0); EOSINOPHILS % 0.4 % (0.0-7.0); HEMATOCRIT 44.6 % (42.0-52.0); HEMOGLOBIN 13.5 g/dl (14.0-18.0); LYMPHOCYTES # 1.2 10^3/ul (0.8-2.9); LYMPHOCYTES % 10.7 % (15.0-51.0); MEAN CORPUSCULAR HEMOGLOBIN 26.3 pg (29.0-33.0); MEAN CORPUSCULAR HGB CONC 30.3 g/dl (32.0-37.0); MEAN CORPUSCULAR VOLUME 86.9 fl (82.0-101.0); MEAN PLATELET VOLUME 12.8 fl (7.4-10.4); MONOCYTE # 1.4 10^3/ul (0.3-0.9); MONOCYTES % 12.7 % (0.0-11.0); NEUTROPHIL # 8.4 10^3/ul (1.6-7.5); NEUTROPHILS % 75.4 % (39.0-77.0); PLATELET COUNT 212 10^3/UL (140-415); RED BLOOD COUNT 5.13 10^6/ul (4.70-6.10); RED CELL DISTRIBUTION WIDTH 16.7 % (11.5-14.5)
[2019-02-14 06:05] LABS: ANION GAP 16 (5-13); CALCIUM 9.3 mg/dl (8.4-10.2); CARBON DIOXIDE 29 mmol/L (21-31); CHLORIDE 94 mmol/L (97-110); MAGNESIUM 2.5 mg/dl (1.7-2.5); PHOSPHORUS 7.5 mg/dl (2.5-4.9); POTASSIUM 4.7 mmol/L (3.5-5.1); SODIUM 139 mmol/L (135-144)
[2019-02-14 06:15] LABS: BLOOD UREA NITROGEN 44 mg/dl (7-20); CREATININE 7.85 mg/dl (0.61-1.24); GLUCOSE 147 mg/dl (70-220)
[2019-02-14] MEDS: ENALAPRILAT 1.25 MG INJ IV (07:45)
[2019-02-14] MEDS: hydrALAzine 20 MG INJ IV ×2 (11:08→20:58)
[2019-02-14] MEDS: ENALAPRIL 10 MG TAB PO (16:26)
[2019-02-14] MEDS: HYDROCHLOROTHIAZIDE 12.5 MG CAP PO (16:27)
[2019-02-14] MEDS: CLOPIDOGREL 75 MG TAB PO (16:27)
[2019-02-14] MEDS: AMLODIPINE 10 MG TAB PO (16:27)
[2019-02-14] MEDS: GEMFIBROZIL 600 MG TAB PO ×2 (17:35→20:52)
[2019-02-14] MEDS: ATORVASTATIN 10 MG TAB PO (20:52)
[2019-02-15] MEDS: INSULIN ASPART [NOVOLOG] 3 ML PEN SC ×6 (02:47→21:28)
[2019-02-15 06:04] LABS: ADD MAN DIFF? NO
[2019-02-15 06:18] LABS: WHITE BLOOD COUNT 8.1 10^3/ul (4.8-10.8)
[2019-02-15 06:18] LABS: ABNORMAL IP MESSAGE 1; BASOPHIL # 0.1 10^3/ul (0.0-0.1); BASOPHILS % 0.9 % (0.0-2.0); EOSINOPHILS # 0.1 10^3/ul (0.0-0.5); EOSINOPHILS % 1.4 % (0.0-7.0); HEMATOCRIT 42.2 % (42.0-52.0); LYMPHOCYTES # 1.5 10^3/ul (0.8-2.9); LYMPHOCYTES % 18.9 % (15.0-51.0); MEAN CORPUSCULAR HEMOGLOBIN 26.6 pg (29.0-33.0); MEAN CORPUSCULAR HGB CONC 30.8 g/dl (32.0-37.0); MEAN CORPUSCULAR VOLUME 86.3 fl (82.0-101.0); MEAN PLATELET VOLUME 13.4 fl (7.4-10.4); MONOCYTE # 1.4 10^3/ul (0.3-0.9); MONOCYTES % 16.7 % (0.0-11.0); NEUTROPHILS % 61.9 % (39.0-77.0); PLATELET COUNT 214 10^3/UL (140-415); POSITIVE DIFF @See below; RED BLOOD COUNT 4.89 10^6/ul (4.70-6.10); RED CELL DISTRIBUTION WIDTH 16.6 % (11.5-14.5)
[2019-02-15 06:26] LABS: ANION GAP 20 (5-13); BLOOD UREA NITROGEN 73 mg/dl (7-20); CALCIUM 9.2 mg/dl (8.4-10.2); CARBON DIOXIDE 24 mmol/L (21-31); CHLORIDE 93 mmol/L (97-110); CREATININE 10.14 mg/dl (0.61-1.24); GLUCOSE 132 mg/dl (70-220); POTASSIUM 4.5 mmol/L (3.5-5.1); SODIUM 137 mmol/L (135-144)
[2019-02-15] MEDS: GEMFIBROZIL 600 MG TAB PO ×2 (09:23→21:01)
[2019-02-15] MEDS: AMLODIPINE 10 MG TAB PO (09:24)
[2019-02-15] MEDS: HYDROCHLOROTHIAZIDE 12.5 MG CAP PO (09:24)
[2019-02-15] MEDS: ASPIRIN (EC) 81 MG TAB PO (09:24)
[2019-02-15] MEDS: CLOPIDOGREL 75 MG TAB PO (09:24)
[2019-02-15] MEDS: ENALAPRIL 10 MG TAB PO (09:24)
[2019-02-15] MEDS: ATORVASTATIN 10 MG TAB PO (21:01)
[2019-02-16 05:45] LABS: ADD MAN DIFF? NO
[2019-02-16 05:49] LABS: WHITE BLOOD COUNT 7.2 10^3/ul (4.8-10.8)
[2019-02-16 05:49] LABS: ABNORMAL IP MESSAGE 1; BASOPHIL # 0.1 10^3/ul (0.0-0.1); BASOPHILS % 0.7 % (0.0-2.0); EOSINOPHILS # 0.2 10^3/ul (0.0-0.5); EOSINOPHILS % 2.1 % (0.0-7.0); HEMATOCRIT 42.3 % (42.0-52.0); HEMOGLOBIN 13.5 g/dl (14.0-18.0); LYMPHOCYTES # 1.5 10^3/ul (0.8-2.9); LYMPHOCYTES % 20.6 % (15.0-51.0); MEAN CORPUSCULAR HEMOGLOBIN 27.5 pg (29.0-33.0); MEAN CORPUSCULAR HGB CONC 31.9 g/dl (32.0-37.0); MEAN CORPUSCULAR VOLUME 86.2 fl (82.0-101.0); MEAN PLATELET VOLUME 13.1 fl (7.4-10.4); MONOCYTE # 1.1 10^3/ul (0.3-0.9); MONOCYTES % 15.2 % (0.0-11.0); NEUTROPHIL # 4.4 10^3/ul (1.6-7.5); NEUTROPHILS % 61.1 % (39.0-77.0); PLATELET COUNT 193 10^3/UL (140-415); POSITIVE DIFF @See below; RED BLOOD COUNT 4.91 10^6/ul (4.70-6.10); RED CELL DISTRIBUTION WIDTH 16.3 % (11.5-14.5)
[2019-02-16 06:12] LABS: ANION GAP 20 (5-13); BLOOD UREA NITROGEN 59 mg/dl (7-20); CALCIUM 9.2 mg/dl (8.4-10.2); CARBON DIOXIDE 22 mmol/L (21-31); CHLORIDE 93 mmol/L (97-110); CREATININE 8.84 mg/dl (0.61-1.24); GLUCOSE 146 mg/dl (70-220); POTASSIUM 4.5 mmol/L (3.5-5.1); SODIUM 135 mmol/L (135-144)
[2019-02-16] MEDS: AMLODIPINE 10 MG TAB PO (08:38)
[2019-02-16] MEDS: CLOPIDOGREL 75 MG TAB PO (08:38)
[2019-02-16] MEDS: ENALAPRIL 10 MG TAB PO (08:38)
[2019-02-16] MEDS: ASPIRIN (EC) 81 MG TAB PO (08:38)
[2019-02-16] MEDS: GEMFIBROZIL 600 MG TAB PO ×2 (08:38→21:55)
[2019-02-16] MEDS: HYDROCHLOROTHIAZIDE 12.5 MG CAP PO (08:39)
[2019-02-16] MEDS: INSULIN ASPART [NOVOLOG] 3 ML PEN SC ×4 (08:44→22:18)
[2019-02-16] MEDS: AMOXICILLIN/CLAV 500 MG TAB PO ×2 (15:41→21:55)
[2019-02-16] MEDS: ATORVASTATIN 10 MG TAB PO (21:55)
[2019-02-17 05:47] LABS: ADD MAN DIFF? NO
[2019-02-17 06:04] LABS: WHITE BLOOD COUNT 5.2 10^3/ul (4.8-10.8)
[2019-02-17 06:04] LABS: ABNORMAL IP MESSAGE 1; BASOPHIL # 0.1 10^3/ul (0.0-0.1); BASOPHILS % 1.3 % (0.0-2.0); EOSINOPHILS # 0.2 10^3/ul (0.0-0.5); EOSINOPHILS % 4.4 % (0.0-7.0); HEMATOCRIT 39.9 % (42.0-52.0); HEMOGLOBIN 12.7 g/dl (14.0-18.0); LYMPHOCYTES # 1.5 10^3/ul (0.8-2.9); LYMPHOCYTES % 28.1 % (15.0-51.0); MEAN CORPUSCULAR HEMOGLOBIN 26.7 pg (29.0-33.0); MEAN CORPUSCULAR HGB CONC 31.8 g/dl (32.0-37.0); MEAN PLATELET VOLUME 13.4 fl (7.4-10.4); MONOCYTE # 0.9 10^3/ul (0.3-0.9); MONOCYTES % 16.8 % (0.0-11.0); NEUTROPHIL # 2.6 10^3/ul (1.6-7.5); PLATELET COUNT 186 10^3/UL (140-415); POSITIVE DIFF @See below; RED BLOOD COUNT 4.75 10^6/ul (4.70-6.10); RED CELL DISTRIBUTION WIDTH 15.5 % (11.5-14.5)
[2019-02-17 06:20] LABS: ANION GAP 23 (5-13); BLOOD UREA NITROGEN 84 mg/dl (7-20); CARBON DIOXIDE 19 mmol/L (21-31); CHLORIDE 87 mmol/L (97-110); CREATININE 10.74 mg/dl (0.61-1.24); GLUCOSE 144 mg/dl (70-220); SODIUM 129 mmol/L (135-144)
[2019-02-17 06:43] LABS: POTASSIUM 4.4 mmol/L (3.5-5.1)
[2019-02-17] MEDS: AMOXICILLIN/CLAV 500 MG TAB PO (08:49)
[2019-02-17] MEDS: HYDROCHLOROTHIAZIDE 12.5 MG CAP PO (08:50)
[2019-02-17] MEDS: ENALAPRIL 10 MG TAB PO (08:50)
[2019-02-17] MEDS: GEMFIBROZIL 600 MG TAB PO (08:50)
[2019-02-17] MEDS: AMLODIPINE 10 MG TAB PO (08:50)
[2019-02-17] MEDS: ASPIRIN (EC) 81 MG TAB PO (08:50)
[2019-02-17] MEDS: CLOPIDOGREL 75 MG TAB PO (08:50)
[2019-02-17] MEDS: INSULIN ASPART [NOVOLOG] 3 ML PEN SC ×3 (09:02→17:49)
== END 2019-02-17 20:26 | disposition home or self-care (01) | DRG 70 ==
LOC: E/R 13:35 → 6WM 14:58
PROVIDERS: Internal Medicine
PROC: 5A1D70Z Performance of Urinary Filtration, Intermittent, Less than 6 Hours Per Day (ICD-10-PCS; principal; 2019-02-12)
DX: G93.41 Metabolic encephalopathy (principal); N18.6 End stage renal disease; I12.0 Hypertensive chronic kidney disease with stage 5 chronic kidney disease or end stage renal disease; E11.22 Type 2 diabetes mellitus with diabetic chronic kidney disease; Z95.5 Presence of coronary angioplasty implant and graft; Z86.73 Personal history of transient ischemic attack (TIA), and cerebral infarction without residual deficits; J20.9 Acute bronchitis, unspecified; Z99.2 Dependence on renal dialysis
CPT/HCPCS: 36415; 70450; 70553; 71045; 74018; 80048; 80053; 80307; 82140; 82533; 82962; 83036; 83605; 83735; 84100; 84443; 84484; 85025; 85610; 85730; 87040-91; 87340; 90935; 92526; 92610; 93005; 97116; 97163; 97167; 97530; 97535; 99285-25